=== PATIENT | female | born 1970 | race American Indian/Alaskan Native ===

== ENCOUNTER 2021-02-20 11:37 | Emergency (ER) | payer OTHER ==
--- NOTE | 2021-02-20 12:05 | EDM.PDOC ---
ED HPI GENERAL MEDICAL PROBLEM - General Chief Complaint: Lower Extremity Injury/Pain Stated Complaint: RULE OUT BLOOD CLOTS R LEG Time Seen by Provider: 02/20/21 11:52 - History of Present Illness INITIAL COMMENTS - FREE TEXT/NARRATIVE: History of present illness: [] The patient has severe pain in the right lower extremity that started last night. It is mostly in the ankle. She went to the clinic and they thought she might have a DVT and sent her to me. 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 She also has a bruise of the right foot where her dog leash got wrapped around her right foot. The patient had a past history of arthritis in the right knee for which she had a steroid injection and no problems since. The patient has no systemic signs of infection. No fever chills nausea weakness. Review of systems: As per history of present illness and below otherwise all systems reviewed and negative. Past medical history: As per history of present illness and as reviewed below otherwise noncontributory. Surgical history: As per history of present illness and as reviewed below otherwise noncontributory. Social history: No reported history of drug or alcohol abuse. Family history: As per history of present illness and as reviewed below otherwise noncontributory. Physical exam: Constitutional - well developed, well-nourished and in no acute distress HEENT - normocephalic, no evidence of trauma - external nose and mouth normal - no mass in neck and no JVD - mucosae moist EYES - full EOM, PERRL, no icterus - no evidence of inflammation, injection, or drainage Respiratory - no respiratory distress, equal bilateral expansion, lungs clear to auscultation and no abnormal lung sounds Cardiovascular - Regular Rhythm with S1 and S2 appreciated and no murmur, gallop or rub. GI - abdomen soft without distension or organomegaly - normal bowel sounds - no guard or rebound Musculoskeletal tenderness of the right tib-fib and posterior calf. The right femoral area is not tender or swollen. No gross deformity of long bones or joints - no tenderness, swelling or edema Neurologic - Alert and oriented times four - CN II-XII grossly intact - motor se nsory and coordination symmetrically normal Psychiatric - appropriate mood and affect with normal thought content Hematologic - No petechiae or purpura - mucosa appropriate color and sclera not pale - normal nail bed color and refill Integument -psoriatic appearing rash on the ankles and feet as well as the upper extremities. No evidence of trauma - normal turgor Diagnostics: [] Therapeutics: [] Impression: [] Plan: [] Definitive disposition and diagnosis as appropriate pending reevaluation and review of above. Right leg Pain Score (Numeric/FACES): 10 - Related Data Allergies Allergy/AdvReac Type Severity Reaction Status Date / Time acetaminophen Allergy Rash Verified 02/20/21 11:55 [From Darvocet-N] amoxicillin Allergy Hives Verified 02/20/21 11:55 clavulanic acid Allergy Rash Verified 02/20/21 11:55 [From Augmentin] Latex, Natural Rubber Allergy Rash Verified 02/20/21 11:55 minocycline Allergy Hives Verified 02/20/21 11:55 naproxen sodium [From Aleve] Allergy Rash Verified 02/20/21 11:55 Penicillins Allergy Hives Verified 02/20/21 11:55 propoxyphene napsylate Allergy Rash Verified 02/20/21 11:55 [From Darvocet-N] walnuts,pineapple,banana Allergy Swollen Uncoded 02/20/21 11:55 Tongue Home Meds: Home Meds Cetirizine [ZyrTEC] 0 DAILY 05/10/14 [History] Clobetasol [Clobetasol Propionate 0.05% Cream] PRN 05/10/14 [History] Sertraline [Zoloft] 0 DAILY 05/10/14 [History] Acetaminophen/HYDROcodone [HYDROcodone-Acetaminophen 5-325 MG *] 1 tab PO Q4H PRN #10 each 02/20/21 [Rx] levoFLOXacin [Levaquin] 750 mg PO Q48H #7 tab 02/20/21 [Rx] Past Medical History Cardiovascular History: Reports: Hypertension Endocrine/Metabolic History: Reports: Diabetes, Type II - Infectious Disease History Infectious Disease History: Reports: None Social & Family History - Tobacco Use Tobacco Use Status *Q: Current Every Day Tobacco User Years of Tobacco use: 20 Packs/Tins Daily: 1 - Recreational Drug Use Recreational Drug Use: No Review of Systems - Review of Systems Review Of Systems: Comprehensive ROS is negative, except as noted in HPI. ED EXAM, GENERAL - Physical Exam Exam: See Below Free Text/Narrative:: My physical exam is in the HPI Course - Vital Signs Text/Narrative:: 1322 hrs. right leg is now warm. Appears he is developing cellulitis. Movement of the ankle is okay. I feel the patient has cellulitis. Last Recorded V/S: Last Vital Signs Temp 36.2 C 02/20/21 11:50 Pulse 77 02/20/21 11:50 Resp 18 02/20/21 11:50 BP 125/58 L 02/20/21 11:50 Pulse Ox 97 02/20/21 11:50 - Orders/Labs/Meds Orders: Active Orders 24 hr Category Date Time Status Tibia Fibula Rt [CR] Stat Exams 02/20/21 12:36 Taken Labs: Laboratory Tests 02/20/21 02/20/21 02/20/21 Range/Units 12:29 12:29 12:29 WBC 15.61 H (4.0-11.0) K/uL RBC 4.26 L (4.30-5.90) M/uL Hgb 13.3 (12.0-16.0) g/dL Hct 40.2 (36.0-46.0) % MCV 94.4 (80.0-98.0) fL MCH 31.2 (27.0-32.0) pg MCHC 33.1 (31.0-37.0) g/dL RDW Std Deviation 48.4 (28.0-62.0) fl RDW Coeff of Nargis 14 (11.0-15.0) % Plt Count 173 (150-400) K/uL MPV 10.20 (7.40-12.00) fL Neut % (Auto) 81.5 H (48.0-80.0) % Lymph % (Auto) 13.0 L (16.0-40.0) % Wise % (Auto) 5.0 (0.0-15.0) % Eos % (Auto) 0.4 (0.0-7.0) % Baso % (Auto) 0.1 (0.0-1.5) % Neut # (Auto) 12.7 H (1.4-5.7) K/uL Lymph # (Auto) 2.0 (0.6-2.4) K/uL Wise # (Auto) 0.8 (0.0-0.8) K/uL Eos # (Auto) 0.1 (0.0-0.7) K/uL Baso # (Auto) 0.0 (0.0-0.1) K/uL Nucleated RBC % 0.0 /100WBC Nucleated RBCs # 0 K/uL ESR 12 (0-29) mm/hr Sodium 141 (136-145) mmol/L Potassium 4.1 (3.5-5.1) mmol/L Chloride 103 (98-107) mmol/L Carbon Dioxide 27.4 (21.0-32.0) mmol/L BUN 37 H (7.0-18.0) mg/dL Creatinine 1.4 H (0.6-1.0) mg/dL Est Cr Clr Drug Dosing 39.77 mL/min Estimated GFR (MDRD) 39.8 ml/min Glucose 110 H (74-106) mg/dL Calcium 8.4 L (8.5-10.1) mg/dL Total Bilirubin 0.4 (0.2-1.0) mg/dL AST 18 (15-37) IU/L ALT 30 (14-63) IU/L Alkaline Phosphatase 42 L (46-116) U/L Total Protein 6.3 L (6.4-8.2) g/dL Albumin 3.4 (3.4-5.0) g/dL Globulin 2.9 (2.6-4.0) g/dL Albumin/Globulin Ratio 1.2 (0.9-1.6) Meds: Medications Discontinued Medications Generic Name Dose Route Start Last Admin Trade Name Freq PRN Reason Stop Dose Admin Ketorolac Tromethamine 30 mg 02/20/21 12:36 02/20/21 12:52 Ketorolac 30 Mg/Ml Sdv IM 02/20/21 12:37 30 mg ONETIME ONE Administration Departure - Departure Time of Disposition: 13:28 Disposition: Home, Self-Care 01 Condition: Good Clinical Impression: Cellulitis of right leg, Leg pain - Discharge Information Instructions: Cellulitis, Adult Forms: ED Department Discharge Additional Instructions: Return if worse. Return if fever and chills. Return if moving her ankle causes severe horrible pain that is getting worse. Return if there is discoloration or pallor or blueness in the right leg and foot. Clinic follow-up advised if not markedly better by Tuesday. [facility] [address] [place] [address] [facility] [address] [place] [address] The following information is given to patients seen in the emergency department who are being discharged to home. This information is to outline your options for follow-up care. We provide all patients seen in our emergency department with a follow-up referral. The need for follow-up, as well as the timing and circumstances, are variable depending upon the specifics of your emergency department visit. If you don't have a primary care physician on staff, we will provide you with a referral. We always advise you to contact your personal physician following an emergency department visit to inform them of the circumstance of the visit and for follow-up with them and/or the need for any referrals to a consulting specialist. The emergency department will also refer you to a specialist when appropriate. This referral assures that you have the opportunity for follow-up care with a specialist. All of these measure are taken in an effort to provide you with optimal care, which includes your follow-up. Under all circumstances we always encourage you to contact your private physician who remains a resource for coordinating your care. When calling for follow-up care, please make the office aware that this follow-up is from your recent emergency room visit. If for any reason you are refused follow-up, please contact the [facility] Emergency Department at and asked to speak to the emergency department charge nurse. Sepsis Event Note (ED) - Evaluation Sepsis Screening Result: No Definite Risk - Focused Exam Vital Signs: Vital Signs Temp Pulse Resp BP Pulse Ox 02/20/21 11:50 36.2 C 77 18 125/58 L 97 - My Orders Last 24 Hours: My Active Orders 02/20/21 12:36 Tibia Fibula Rt [CR] Stat - Assessment/Plan Last 24 Hours: My Active Orders 02/20/21 12:36 Tibia Fibula Rt [CR] Stat
[2021-02-20] MEDS ORDERED: Ketorolac 30 MG/ML SDV IM ONE (12:36)
[2021-02-20 13:01] LABS: CARBON DIOXIDE,CO2 27.4 mmol/L (21.0-32.0); POTASSIUM,K 4.1 mmol/L (3.5-5.1)
--- NOTE | 2021-02-20 13:07 | US ---
INDICATION: Leg pain and swelling. TECHNIQUE: Ultrasound venous duplex lower right extremity. Compression venous exam was performed using rodrigues-scale, color Doppler, and spectral Doppler analysis. COMPARISON: None.. FINDINGS: Deep veins: Sonographic imaging demonstrates the right common femoral, deep femoral, superficial femoral, popliteal, posterior tibial and the contralateral right common femoral veins to be fully compressible with normal color Doppler blood flow. Superficial veins: Greater saphenous vein is fully compressible. No popliteal cyst. IMPRESSION: Normal right lower extremity venous ultrasound, no sign of deep venous thrombosis. Dictated by Betito Hanna MD @ 02/20/2021 1:06:49 PM (Electronically Signed)
--- NOTE | 2021-02-20 13:30 | CR ---
INDICATION: Lower extremity pain, no history trauma TECHNIQUE: COMPARISON: None FINDINGS: Bones: Alignment is normal. No fractures. Dorsal and plantar calcaneal spurs. Joint spaces: Unremarkable. Soft tissues: Calf soft tissue edema. IMPRESSION: No acute osseous abnormalities. Dorsal and plantar calcaneal spurs. Calf edema. Dictated by Manuelito Jenkins MD @ 02/20/2021 1:29:37 PM (Electronically Signed)
== END 2021-02-20 13:57 | disposition home or self-care (01) ==
LOC: MW.ED 11:37
DX: L03.115 Cellulitis of right lower limb (principal); I10 Essential (primary) hypertension; E11.9 Type 2 diabetes mellitus without complications; Z72.0 Tobacco use; Z88.6 Allergy status to analgesic agent; Z88.0 Allergy status to penicillin; Z88.1 Allergy status to other antibiotic agents; Z91.040 Latex allergy status; Z88.8 Allergy status to other drugs, medicaments and biological substances; Z91.018 Allergy to other foods; Z79.899 Other long term (current) drug therapy
CPT/HCPCS: 36415; 73590; 80053; 85025; 85652; 93971; 96372; 99284; J1885

== ENCOUNTER 2021-02-20 18:49 | Observation (INO) | payer OTHER ==
--- NOTE | 2021-02-20 22:01 | EDM.PDOC ---
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 She was discharge in the early afternoon today with a diagnosis of cellulitis and prescribed Levaquin and hydrocodone. She underwent a negative venous Doppler study to the right lower extremity today demonstrating no DVT. X-ray of her right tib-fib was negative for fractures but demonstrated calf edema. She took 2 tablets of hydrocodone and returns for worsening pain, currently described as sharp stabbing pain localized to the right anterior tib- fib rated 10/10. She was in so much pain that she felt short of breath. She denies fever, chills. Pain started yesterday afternoon, she states 3 to 4 days ago her dog ran around her leg and the leash wrapped around the front of her right anterior tib-fib creating a bruise. She is pending referral to [facility] for her PPP. ROS: A 10-point review of systems, other than pertinent positives and negatives as stated per HPI, is otherwise negative Past medical history: No additional pertinent history Past Surgical history: No additional pertinent history Social history: No additional pertinent history Family history: No additional pertinent history PHYSICAL EXAM General: AOx4, GCS = 15, obese, moderate distress HEENT: dry mucous membrane Neck: supple, no meningismus, no Kernig or Brudzinski Cardiac: S1S2 RRR Respiratory: CTAB, no crackles or rales, no wheezing Abdomen: Soft, nontender, no rebound or guarding, nondistended, no pulsatile mass. Back: nontender Musculoskeletal: NVI distally, quarter size ecchymosis to the anterior tib-fib with no deformity or surrounding erythema Neuro: No focal deficits, CN 2 - 12 WNL. Skin: brown macular pustules present amidst erythematous, hyperkeratotic plaque on the plantar right foot Right Leg Pain Score (Numeric/FACES): 10 - Related Data Allergies Allergy/AdvReac Type Severity Reaction Status Date / Time acetaminophen Allergy Rash Verified 02/20/21 21:39 [From Darvocet-N] amoxicillin Allergy Hives Verified 02/20/21 21:39 clavulanic acid Allergy Rash Verified 02/20/21 21:39 [From Augmentin] Latex, Natural Rubber Allergy Rash Verified 02/20/21 21:39 minocycline Allergy Hives Verified 02/20/21 21:39 naproxen sodium [From Aleve] Allergy Rash Verified 02/20/21 21:39 Penicillins Allergy Hives Verified 02/20/21 21:39 propoxyphene napsylate Allergy Rash Verified 02/20/21 21:39 [From Darvocet-N] walnuts,pineapple,banana Allergy Swollen Uncoded 02/20/21 21:39 Tongue Home Meds: Home Meds Cetirizine [ZyrTEC] 0 DAILY 05/10/14 [History] Clobetasol [Clobetasol Propionate 0.05% Cream] PRN 05/10/14 [History] Sertraline [Zoloft] 0 DAILY 05/10/14 [History] Acetaminophen/HYDROcodone [HYDROcodone-Acetaminophen 5-325 MG *] 1 tab PO Q4H PRN #10 each 02/20/21 [Rx] levoFLOXacin [Levaquin] 750 mg PO Q48H #7 tab 02/20/21 [Rx] Past Medical History HEENT History: Reports: None Cardiovascular History: Reports: Hypertension Respiratory History: Reports: None Gastrointestinal History: Reports: None Genitourinary History: Reports: None 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 Musculoskeletal History: Reports: None Neurological History: Reports: None Psychiatric History: Reports: None Endocrine/Metabolic History: Reports: Diabetes, Type II Hematologic History: Reports: None Immunologic History: Reports: None Oncologic (Cancer) History: Reports: None Dermatologic History: Reports: None - Infectious Disease History Infectious Disease History: Reports: None - Past Surgical History Head Surgeries/Procedures: Reports: None Musculoskeletal Surgical History: Reports: None Social & Family History - Family History Family Medical History: No Pertinent Family History - Tobacco Use Tobacco Use Status *Q: Current Every Day Tobacco User Years of Tobacco use: 20 Packs/Tins Daily: 0.5 - Caffeine Use Caffeine Use: Reports: Soda - Recreational Drug Use Recreational Drug Use: Yes Recreational Drug Type: Reports: Marijuana/Hashish Review of Systems - Review of Systems Review Of Systems: See Below (see dictation) ED EXAM, GENERAL - Physical Exam Exam: See Below (see dictation) Course - Vital Signs Last Recorded V/S: Last Vital Signs Temp Pulse 69 02/20/21 23:25 Resp 18 02/20/21 21:40 BP 123/62 02/20/21 23:25 Pulse Ox 93 L 02/20/21 23:25 - Orders/Labs/Meds Orders: Active Orders 24 hr Category Date Time Status CORONAVIRUS COVID-19 ARTIE [MOLEC] Stat Lab 02/21/21 00:34 Ordered Clindamycin Phosphate [Cleocin] 300 mg Med 02/21/21 00:34 Ordered Sodium Chloride 0.9% [Normal Saline] 50 ml IV ONETIME Medication Orders Clindamycin Phosphate 300 mg/ (Sodium Chloride) 52 mls @ 100 mls/hr IV ONETIME ONE Stop: 02/21/21 01:05 Labs: Laboratory Tests 02/20/21 02/20/21 Range/Units 22:20 22:20 WBC 14.17 H (4.0-11.0) K/uL RBC 4.24 L (4.30-5.90) M/uL Hgb 13.4 (12.0-16.0) g/dL Hct 40.0 (36.0-46.0) % MCV 94.3 (80.0-98.0) fL MCH 31.6 (27.0-32.0) pg MCHC 33.5 (31.0-37.0) g/dL RDW Std Deviation 48.0 (28.0-62.0) fl RDW Coeff of Nargis 14 (11.0-15.0) % Plt Count 194 (150-400) K/uL MPV 10.40 (7.40-12.00) fL Neut % (Auto) 80.5 H (48.0-80.0) % Lymph % (Auto) 13.7 L (16.0-40.0) % [place] % (Auto) 5.6 (0.0-15.0) % Eos % (Auto) 0.1 (0.0-7.0) % Baso % (Auto) 0.1 (0.0-1.5) % Neut # (Auto) 11.4 H (1.4-5.7) K/uL Lymph # (Auto) 1.9 (0.6-2.4) K/uL [place] # (Auto) 0.8 (0.0-0.8) K/uL Eos # (Auto) 0.0 (0.0-0.7) K/uL Baso # (Auto) 0.0 (0.0-0.1) K/uL Nucleated RBC % 0.0 /100WBC Nucleated RBCs # 0 K/uL Sodium 141 (136-145) mmol/L Potassium 4.9 (3.5-5.1) mmol/L Chloride 105 (98-107) mmol/L Carbon Dioxide 27.1 (21.0-32.0) mmol/L BUN 43 H (7.0-18.0) mg/dL Creatinine 1.5 H (0.6-1.0) mg/dL Est Cr Clr Drug Dosing 37.12 mL/min Estimated GFR (MDRD) 36.8 ml/min Glucose 127 H (74-106) mg/dL Calcium 8.3 L (8.5-10.1) mg/dL Total Bilirubin 0.3 (0.2-1.0) mg/dL AST 20 (15-37) IU/L ALT 34 (14-63) IU/L Alkaline Phosphatase 50 (46-116) U/L Creatine Kinase 253 (26-308) U/L Total Protein 6.5 (6.4-8.2) g/dL Albumin 3.4 (3.4-5.0) g/dL Globulin 3.1 (2.6-4.0) g/dL Albumin/Globulin Ratio 1.1 (0.9-1.6) Meds: Medications Generic Name Dose Route Start Last Admin Trade Name Freq PRN Reason Stop Dose Admin Clindamycin Phosphate 300 mg/ 52 mls @ 100 mls/hr 02/21/21 00:34 Sodium Chloride IV 02/21/21 01:05 ONETIME ONE Discontinued Medications Generic Name Dose Route Start Last Admin Trade Name Daniel PRN Reason Stop Dose Admin Lactated Ringer's 1,000 mls @ 999 mls/hr 02/20/21 22:06 02/20/21 22:20 Ringers, Lactated IV 02/20/21 23:06 999 mls/hr .BOLUS ONE Administration Morphine Sulfate 4 mg 02/20/21 22:06 02/20/21 22:20 Morphine 4 Mg/Ml Syringe IVPUSH 02/20/21 22:07 4 mg ONETIME ONE Administration - Re-Assessments/Exams Free Text/Narrative Re-Assessment/Exam: 02/21/21 00:[address] Cardoso, who agrees to admit patient. The hospitalist's documentation supersedes all other documentation on this patient with regard to any conflicts or discrepancies from this point forward. Any emergency conditions have been treated to the ability of the ED prior to admission. Departure - Departure Time of Disposition: 00:41 Disposition: Home, Self-Care 01 Condition: Good Clinical Impression: Intractable pain, Pustulosis palmaris et plantaris, Cellulitis - Discharge Information *PRESCRIPTION DRUG MONITORING PROGRAM REVIEWED*: Not Applicable *COPY OF PRESCRIPTION DRUG MONITORING REPORT IN PATIENT [place]: Not Applicable Referrals: Ondina Saravia MD [Primary Care Provider] - Forms: ED Department Discharge Sepsis Event Note (ED) - Focused Exam Vital Signs: Vital Signs Pulse Resp BP Pulse Ox 02/20/21 23:25 69 123/62 93 L 02/20/21 21:40 96 18 142/72 H 95 - My Orders Last 24 Hours: My Active Orders 02/21/21 00:34 CORONAVIRUS COVID-19 ARTIE [MOLEC] Stat Clindamycin Phosphate [Cleocin] 300 mg Sodium Chloride 0.9% [Normal Saline] 50 ml IV ONETIME - Assessment/Plan Last 24 Hours: My Active Orders 02/21/21 00:34 CORONAVIRUS COVID-19 ARTIE [MOLEC] Stat Clindamycin Phosphate [Cleocin] 300 mg Sodium Chloride 0.9% [Normal Saline] 50 ml IV ONETIME
[2021-02-20] MEDS ORDERED: Lactated Ringers 1,000 ML IV ONE (22:06)
[2021-02-20] MEDS ORDERED: Morphine 4 MG/ML Syringe IVPUSH ONE (22:06)
[2021-02-20 22:50] LABS: CARBON DIOXIDE,CO2 27.1 mmol/L (21.0-32.0); POTASSIUM,K 4.9 mmol/L (3.5-5.1)
[2021-02-21] MEDS ORDERED: Clindamycin Phosphate in D5W 50 ML IV ONE (00:39)
[2021-02-21] MEDS ORDERED: Clindamycin Phosphate in D5W 300 MG in Premix Bag 1 BAG IV ONE ×2 (00:39)
[2021-02-21] MEDS ORDERED: Albuterol/Ipratropium 3.0-0.5 MG/3 ML Neb Soln NEB PRN (03:25)
[2021-02-21] MEDS ORDERED: Glucagon,Human Recombinant 1 MG Vial IM PRN (03:25)
[2021-02-21] MEDS ORDERED: Morphine 2 MG/ML SYRINGE IVPUSH PRN (03:25)
[2021-02-21] MEDS ORDERED: 50% Dextrose in Water 50 ML Syringe IVPUSH PRN (03:25)
[2021-02-21] MEDS ORDERED: Ondansetron 4 MG/2 ML SDV IVPUSH PRN (03:25)
[2021-02-21] MEDS ORDERED: VANCOmycin 2 GM/400 ML 400 ML IV SCH (04:00)
[2021-02-21] MEDS: Morphine 2 MG/ML SYRINGE IVPUSH PRN ×2 (06:28→11:32)
[2021-02-21] MEDS: Insulin Aspart 100 Units/ML 3 ML Pen SUBCUT SCH ×3 (07:20→18:41)
[2021-02-21] MEDS ORDERED: CLOBETASOL TOP PRN (09:00)
--- NOTE | 2021-02-21 09:11 | PCM.HP.2 ---
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 She was seen in ER yesterday and diagnosis of cellulitis was made and prescribed Levaquin and hydrocodone. She underwent a negative venous Doppler study to the right lower extremity demonstrating no DVT. X-ray of her right tib-fib was negative for fractures but demonstrated calf edema. She took 2 tablets of hydrocodone and returns for worsening pain, currently described as sharp stabbing pain localized to the right anterior tib-fib rated 10/10. She was in so much pain that she felt short of breath. She denies fever, chills. Pain started yesterday afternoon, she states 3 to 4 days ago her dog ran around her leg and the leash wrapped around the front of her right anterior tib-fib creating a bruise. She is pending referral to [facility] for her PPP. Patient's lab work was significant for leukocytosis, patient's right fitzgerald appeared to be warm and tender to touch per ER physician, patient was admitted to the hospital for management of possible cellulitis of right leg. Patient received IV antibiotics. Patient states that her pain is more chronic in nature but recently got worse it seems to start from her knee goes all the way down to her anterior fitzgerald. Patient describes the pain as sharp shooting pain sometimes causes burning sensation. Patient states that she has gotten steroid shots in her knee for knee pain and also is on gabapentin for neuropathic pain. Patient follows up with her certified addiction counselor as well as PCP for her condition. Patient currently takes oral prednisone for palmar plantar pustulosis, in the past she has tried several immunomodulators including Humira which have not worked for her. Patient was quite tearful during my encounter states that pain is affecting her quality of life and she is unable to do her activities of daily living normally. Right Leg Pain Score (Numeric/FACES): 9 - Related Data Allergies/Adverse Reactions: Allergies Allergy/AdvReac Type Severity Reaction Status Date / Time amoxicillin Allergy Hives Verified 02/21/21 02:46 clavulanic acid Allergy Rash Verified 02/21/21 02:46 [From Augmentin] Latex, Natural Rubber Allergy Rash Verified 02/21/21 02:46 minocycline Allergy Hives Verified 02/21/21 02:46 naproxen sodium [From Aleve] Allergy Rash Verified 02/21/21 02:46 Penicillins Allergy Hives Verified 02/21/21 02:46 propoxyphene napsylate Allergy Rash Verified 02/21/21 02:46 [From Darvocet-N] walnuts,pineapple,banana Allergy Swollen Uncoded 02/21/21 02:46 Tongue Home Medications: Home Meds Cetirizine [ZyrTEC] 1 tab DAILY 05/10/14 [History] Clobetasol [Clobetasol Propionate 0.05% Cream] 1 dose TOP BID PRN 05/10/14 [History] Sertraline [Zoloft] DAILY 05/10/14 [History] Acetaminophen/HYDROcodone [HYDROcodone-Acetaminophen 5-325 MG *] 1 tab PO Q4H PRN #10 each 02/20/21 [Rx] levoFLOXacin [Levaquin] 750 mg PO Q48H #7 tab 02/20/21 [Rx] Gabapentin [Neurontin] 300 mg PO TID PRN 02/21/21 [History] predniSONE [Prednisone] 30 mg PO DAILY 02/21/21 [History] Past Medical History HEENT History: Reports: Sinusitis Cardiovascular History: Reports: Hypertension Respiratory History: Reports: None Gastrointestinal History: Reports: None Genitourinary History: Reports: None [employer]ENS[employer]ACH History: Reports: Musculoskeletal History: Reports: Arthritis Other Musculoskeletal History: Arthritis in right knee Neurological History: Reports: None Psychiatric History: Reports: Anxiety Endocrine/Metabolic History: Reports: Diabetes, Type II Hematologic History: Reports: None Immunologic History: Reports: None Oncologic (Cancer) History: Reports: None Dermatologic History: Reports: Other (See Below) Other Dermatologic History: Palmoplantar Pustulosis, bullous pemphigoid - Infectious Disease History Infectious Disease History: Reports: Chicken Pox - Past Surgical History Head Surgeries/Procedures: Reports: None HEENT Surgical History: Reports: Tonsillectomy GI Surgical History: Reports: Cholecystectomy Female Surgical History: Reports: Section, Hysterectomy Musculoskeletal Surgical History: Reports: None Social & Family History - Family History Family Medical History: No Pertinent Family History - Tobacco Use Tobacco Use Status *Q: Current Every Day Tobacco User Years of Tobacco use: 20 Packs/Tins Daily: 0.5 - Caffeine Use Caffeine Use: Reports: Soda - Recreational Drug Use Recreational Drug Use: Yes Recreational Drug Type: Reports: Marijuana/Hashish Recreational Drug Use Frequency: Rarely H&P Review of Systems - Review of Systems: Review Of Systems: See Below General: Denies: Fever, Chills, Malaise, Weakness, Fatigue Pulmonary: Denies: Shortness of Breath, Wheezing, Pleuritic Chest Pain Cardiovascular: Denies: Chest Pain, Palpitations, Dyspnea on Exertion Gastrointestinal: Denies: Abdominal Pain, Anorexia, Black Stool, Bloody Stool, Constipation Genitourinary: Denies: Dysuria, Frequency, Burning, Pain Musculoskeletal: Denies: Neck Pain, Shoulder Pain, Arm Pain, Back Pain, Other Skin: Reports: Rash, Erythema, Lesions. Denies: Cyanosis, Jaundice, Change in Color Psychiatric: Denies: Confusion, Depression, Mood Lability Neurological: Denies: Confusion, Dizziness, Headache, Numbness Hematologic/Lymphatic: Denies: Anemia, Easy Bleeding, Easy Bruising Exam - Exam Exam: See Below - Vital Signs Vital Signs: Last Vital Signs Temp 35.9 C L 02/21/21 05:09 Pulse 63 02/21/21 05:09 Resp 16 02/21/21 05:09 BP 127/67 02/21/21 05:09 Pulse Ox 95 02/21/21 05:09 Weight: 147.735 kg - Exam General: Alert, Oriented Neck: Supple, Trachea Midline Lungs: Clear to Auscultation, Normal Respiratory Effort Cardiovascular: Regular Rate, Regular Rhythm GI/Abdominal Exam: Normal Bowel Sounds, Soft, Non-Tender Extremities: Leg Pain, Redness, Other (Red erythematous rash in the plantar aspect of her right foot which is chronic in nature) - Patient Data Lab Results Last 24 hrs: Laboratory Results - last 24 hr 02/20/21 02/20/21 02/21/21 Range/Units 22:20 22:20 00:40 WBC 14.17 H (4.0-11.0) K/uL RBC 4.24 L (4.30-5.90) M/uL Hgb 13.4 (12.0-16.0) g/dL Hct 40.0 (36.0-46.0) % MCV 94.3 (80.0-98.0) fL MCH 31.6 (27.0-32.0) pg MCHC 33.5 (31.0-37.0) g/dL RDW Std Deviation 48.0 (28.0-62.0) fl RDW Coeff of Nargis 14 (11.0-15.0) % Plt Count 194 (150-400) K/uL MPV 10.40 (7.40-12.00) fL Neut % (Auto) 80.5 H (48.0-80.0) % Lymph % (Auto) 13.7 L (16.0-40.0) % Campbell % (Auto) 5.6 (0.0-15.0) % Eos % (Auto) 0.1 (0.0-7.0) % Baso % (Auto) 0.1 (0.0-1.5) % Neut # (Auto) 11.4 H (1.4-5.7) K/uL Lymph # (Auto) 1.9 (0.6-2.4) K/uL Campbell # (Auto) 0.8 (0.0-0.8) K/uL Eos # (Auto) 0.0 (0.0-0.7) K/uL Baso # (Auto) 0.0 (0.0-0.1) K/uL Nucleated RBC % 0.0 /100WBC Nucleated RBCs # 0 K/uL Sodium 141 (136-145) mmol/L Potassium 4.9 (3.5-5.1) mmol/L Chloride 105 (98-107) mmol/L Carbon Dioxide 27.1 (21.0-32.0) mmol/L BUN 43 H (7.0-18.0) mg/dL Creatinine 1.5 H (0.6-1.0) mg/dL Est Cr Clr Drug Dosing 37.12 mL/min Estimated GFR (MDRD) 36.8 ml/min Glucose 127 H (74-106) mg/dL POC Glucose (70-99) mg/dL Calcium 8.3 L (8.5-10.1) mg/dL Total Bilirubin 0.3 (0.2-1.0) mg/dL AST 20 (15-37) IU/L ALT 34 (14-63) IU/L Alkaline Phosphatase 50 (46-116) U/L Creatine Kinase 253 (26-308) U/L Total Protein 6.5 (6.4-8.2) g/dL Albumin 3.4 (3.4-5.0) g/dL Globulin 3.1 (2.6-4.0) g/dL Albumin/Globulin Ratio 1.1 (0.9-1.6) SARS-CoV-2 RNA (ARTIE) NEGATIVE (NEGATIVE) 02/21/21 02/21/21 Range/Units 03:52 06:32 WBC (4.0-11.0) K/uL RBC (4.30-5.90) M/uL Hgb (12.0-16.0) g/dL Hct (36.0-46.0) % MCV (80.0-98.0) fL MCH (27.0-32.0) pg MCHC (31.0-37.0) g/dL RDW Std Deviation (28.0-62.0) fl RDW Coeff of Nargis (11.0-15.0) % Plt Count (150-400) K/uL MPV (7.40-12.00) fL Neut % (Auto) (48.0-80.0) % Lymph % (Auto) (16.0-40.0) % Campbell % (Auto) (0.0-15.0) % Eos % (Auto) (0.0-7.0) % Baso % (Auto) (0.0-1.5) % Neut # (Auto) (1.4-5.7) K/uL Lymph # (Auto) (0.6-2.4) K/uL Campbell # (Auto) (0.0-0.8) K/uL Eos # (Auto) (0.0-0.7) K/uL Baso # (Auto) (0.0-0.1) K/uL Nucleated RBC % /100WBC Nucleated RBCs # K/uL Sodium (136-145) mmol/L Potassium (3.5-5.1) mmol/L Chloride (98-107) mmol/L Carbon Dioxide (21.0-32.0) mmol/L BUN (7.0-18.0) mg/dL Creatinine (0.6-1.0) mg/dL Est Cr Clr Drug Dosing mL/min Estimated GFR (MDRD) ml/min Glucose (74-106) mg/dL POC Glucose 86 102 H (70-99) mg/dL Calcium (8.5-10.1) mg/dL Total Bilirubin (0.2-1.0) mg/dL AST (15-37) IU/L ALT (14-63) IU/L Alkaline Phosphatase (46-116) U/L Creatine Kinase (26-308) U/L Total Protein (6.4-8.2) g/dL Albumin (3.4-5.0) g/dL Globulin (2.6-4.0) g/dL Albumin/Globulin Ratio (0.9-1.6) SARS-CoV-2 RNA (ARTIE) (NEGATIVE) Result Diagrams: 02/20/21 22:20 02/20/21 22:20 Sepsis Event Note - Evaluation Sepsis Screening Result: No Definite Risk - Focused Exam Vital Signs: Vital Signs Temp Pulse Resp BP Pulse Ox 02/21/21 05:09 35.9 C L 63 16 127/67 95 02/21/21 02:05 36.4 C 62 16 129/64 97 02/21/21 01:12 62 107/49 L 95 02/21/21 00:42 36.5 C 02/20/21 23:25 69 123/62 93 L 02/20/21 21:40 96 18 142/72 H 95 - Problem List (1) Diabetes mellitus SNOMED Code(s): 71445657 ICD Code: E11.9 - TYPE 2 DIABETES MELLITUS WITHOUT COMPLICATIONS Status: Acute Current Visit: Yes (2) Cellulitis SNOMED Code(s): 715719792 ICD Code: L03.90 - CELLULITIS, UNSPECIFIED Status: Acute Current Visit: Yes (3) Intractable pain SNOMED Code(s): 60032947 ICD Code: R52 - PAIN, UNSPECIFIED Status: Acute Current Visit: Yes (4) Pustulosis palmaris et plantaris SNOMED Code(s): 39752079 ICD Code: L40.3 - PUSTULOSIS PALMARIS ET PLANTARIS Status: Acute Current Visit: Yes (5) Cellulitis of right leg SNOMED Code(s): 083001700 ICD Code: L03.115 - CELLULITIS OF RIGHT LOWER LIMB Status: Acute Current Visit: No (6) Leg pain SNOMED Code(s): 69543009 ICD Code: M79.606 - PAIN IN LEG, UNSPECIFIED Status: Acute Current Visit: No Problem List Initiated/Reviewed/Updated: Yes Orders Last 24hrs: Active Orders 24 hr Category Date Time Status Patient Status [ADT] Routine ADT 02/21/21 00:47 Active Accu Check [Blood Glucose Check, Bedside] [RC] TIDAC Care 02/21/21 03:24 Active Blood Glucose Check, Bedside [RC] TIDMEALS Care 02/21/21 03:25 Active Communication Order [RC] ROUTINE Care 02/21/21 03:24 Active RT Aerosol Therapy [RC] ASDIRECTED Care 02/21/21 03:26 Active Up ad Bridget [RC] ASDIRECTED Care 02/21/21 03:24 Active Vital Signs [RC] Q4H Care 02/21/21 03:24 Active [employer] Diet [DIET] Diet 02/21/21 Breakfast Active VANCOMYCIN TROUGH [CHEM] Timed Lab 02/23/21 03:30 Ordered Albuterol/Ipratropium [DuoNeb 3.0-0.5 MG/3 ML] Med 02/21/21 03:25 Active 3 ml NEB Q4HRRT PRN Dextrose 50% in Water Med 02/21/21 03:25 Active 50 ml IVPUSH ASDIRECTED PRN Enoxaparin [Lovenox] Med 02/21/21 09:00 Active 40 mg SUBCUT Q24H Glucagon,Human Recombinant [GlucaGen] Med 02/21/21 03:25 Active 1 mg IM ASDIRECTED PRN Insulin Aspart [NovoLOG] Med 02/21/21 07:30 Active See Protocol SUBCUT TIDAC Morphine Med 02/21/21 05:31 Active 2 mg IVPUSH Q4H PRN Ondansetron [Zofran] Med 02/21/21 03:25 Active 4 mg IVPUSH Q4H PRN Pantoprazole [ProTONIX IV] 40 mg Med 02/21/21 09:00 Active Sodium Chloride 0.9% [Normal Saline] 10 ml IV DAILY Pharmacy to Dose - Vancomycin Med 02/21/21 09:00 Active 1 dose .XX ASDIRECTED VANCOmycin 2 GM/400 ML 400 ml Med 02/21/21 04:00 Active IV Q24H Medication Orders Albuterol/Ipratropium (Albuterol/Ipratropium 3.0-0.5 Mg/3 Ml Neb Soln) 3 ml NEB Q4HRRT PRN PRN Reason: Shortness of Breath Dextrose/Water (50% Dextrose In Water 50 Ml Syringe) 50 ml IVPUSH ASDIRECTED CA N PRN Reason: Hypoglycemia Enoxaparin Sodium (Enoxaparin 40 Mg/0.4 Ml Syringe) 40 mg SUBCUT Q24H KATELYNN Glucagon (Glucagon,Human Recombinant 1 Mg Vial) 1 mg IM ASDIRECTED PRN PRN Reason: Hypoglycemia Pantoprazole Sodium 40 mg/ (Sodium Chloride) 10 mls @ 300 mls/hr IV DAILY KATELYNN Vancomycin HCl (Vancomycin 2 Gm/400 Ml) 400 mls @ 200 mls/hr IV Q24H KATELYNN Last Admin: 02/21/21 05:05 Dose: 200 mls/hr Documented by: AGUSTO Insulin Aspart (Insulin Aspart 100 Units/Ml 3 Ml Pen) 0 unit SUBCUT TIDAC [facility]; Protocol Last Admin: 02/21/21 07:20 Dose: Not Given Documented by: THALIA Morphine Sulfate (Morphine 2 Mg/Ml Syringe) 2 mg IVPUSH Q4H PRN PRN Reason: Pain Last Admin: 02/21/21 06:28 Dose: 2 mg Documented by: AGUSTO Ondansetron HCl (Ondansetron 4 Mg/2 Ml Sdv) 4 mg IVPUSH Q4H PRN PRN Reason: Nausea Vancomycin HCl (Pharmacy To Dose - Vancomycin) 1 dose .XX ASDIRECTED [facility] Assessment/Plan Comment:: Patient is a 51-year-old female admitted for intractable right leg pain, patient has history of PPP which is skin condition causing chronic rash in the plantar and palmar aspects of hands and feet. Patient does have white count but also take steroids, upon reviewing patient's previous images of the rash the rash actually appears much better, there is no r edness or swelling around her fitzgerald I doubt patient has cellulitis at this point The pain seems to be chronic in nature and seems to be acutely exacerbated, We will provide some pain relief with IV Toradol for now, patient states that morphine is not helping We will continue patient's oral steroids Patient takes gabapentin 300 3 times daily, will increase the dose to 600 3 times daily and see if that helps alleviate patient's pain I informed patient that this condition requires further outpatient management and she will need to see her PCP and rheumatology for further options I will obtain a CT scan of the right lower extremity including knee to rule out any other acute pathology Possible DC tomorrow if able to obtain pain control
[2021-02-21] MEDS: Pantoprazole 40 MG in Sodium Chloride 0.9% 10 ML IV SCH (09:37)
[2021-02-21] MEDS: Enoxaparin 40 MG/0.4 ML Syringe SUBCUT SCH (09:37)
[2021-02-21] MEDS: Ketorolac 30 MG/ML SDV IVPUSH PRN ×2 (15:00→20:51)
--- NOTE | 2021-02-21 19:32 | CT ---
HISTORY: Right lower leg pain. FINDINGS: The lower leg was studied in the axial plane. Sagittal and coronal 2 dimensional reconstructions were then performed. There is mild to moderate patchy increased density in the subcutaneous fat of the lower leg especially anteriorly. This could represent edema possibly from cellulitis. No mass lesion or fluid collection is seen. Mild atrophy and fatty replacement of the calf musculature is noted. No focal bony destruction or fracture is noted. Moderate osteoarthritic changes of the knee joint are noted. Dystrophic calcifications are seen in the distal Achilles tendon. IMPRESSION: Likely mild edema in the subcutaneous fat of the lower leg of unknown cause. Please correlate with possibility for cellulitis. Please note that all CT scans at this facility use dose modulation, iterative reconstruction, and/or weight-based dosing when appropriate to reduce radiation dose to as low as reasonably achievable. Dictated by Lucas John MD @ 02/22/2021 6:54:43 AM (Electronically Signed)
[2021-02-21] MEDS: Gabapentin 300 MG Cap PO SCH ×3 (20:49→22:11)
[2021-02-21] MEDS ORDERED: Gabapentin 300 MG Cap PO SCH (22:00)
[2021-02-22] MEDS ORDERED: HYDROmorphone 1 MG/ML Syringe IVPUSH ONE (00:33)
[2021-02-22] MEDS: Sertraline 100 MG Tab PO SCH ×2 (01:22→09:28)
[2021-02-22] MEDS: Hydroxychloroquine 200 MG Tab PO SCH ×2 (01:23→10:33)
[2021-02-22] MEDS ORDERED: Vancomycin 2 GM in Sodium Chloride 0.9% 500 ML IV SCH (04:00)
[2021-02-22] MEDS: Gabapentin 300 MG Cap PO SCH (06:42)
[2021-02-22] MEDS: Insulin Aspart 100 Units/ML 3 ML Pen SUBCUT SCH ×2 (07:03→11:32)
[2021-02-22 07:08] LABS: CARBON DIOXIDE,CO2 24.9 mmol/L (21.0-32.0); POTASSIUM,K 4.3 mmol/L (3.5-5.1)
[2021-02-22] MEDS ORDERED: Cetirizine 10 MG Tab PO SCH (09:00)
[2021-02-22] MEDS ORDERED: predniSONE 10 MG Tab PO SCH (09:00)
[2021-02-22] MEDS ORDERED: Lisinopril/Hydrochlorothiazide 10-12.5 MG Tab PO SCH (09:15)
[2021-02-22] MEDS ORDERED: Hydrochlorothiazide 12.5 MG Cap PO SCH (09:15)
[2021-02-22] MEDS ORDERED: Lisinopril 10 MG Tab PO SCH (09:15)
[2021-02-22] MEDS: Pantoprazole 40 MG in Sodium Chloride 0.9% 10 ML IV SCH (09:25)
[2021-02-22] MEDS: Enoxaparin 40 MG/0.4 ML Syringe SUBCUT SCH (09:25)
[2021-02-22] MEDS: Ketorolac 30 MG/ML SDV IVPUSH PRN (11:19)
--- NOTE | 2021-02-22 12:13 | PCM.DCSUM1 ---
Discharge Summary - Discharge Data Discharge Disposition: Home, Self-Care 01 Condition: Stable - Referral to Home Health Primary Care Physician: Ondina Saravia MD - Discharge Diagnosis/Problem(s) (1) Diabetes mellitus SNOMED Code(s): 81940348 ICD Code: E11.9 - TYPE 2 DIABETES MELLITUS WITHOUT COMPLICATIONS Status: Acute Current Visit: Yes (2) Cellulitis SNOMED Code(s): 080505113 ICD Code: L03.90 - CELLULITIS, UNSPECIFIED Status: Acute Current Visit: Yes (3) Intractable pain SNOMED Code(s): 80862326 ICD Code: R52 - PAIN, UNSPECIFIED Status: Acute Current Visit: Yes (4) Pustulosis palmaris et plantaris SNOMED Code(s): 94707041 ICD Code: L40.3 - PUSTULOSIS PALMARIS ET PLANTARIS Status: Acute Current Visit: Yes (5) Cellulitis of right leg SNOMED Code(s): 774421219 ICD Code: L03.115 - CELLULITIS OF RIGHT LOWER LIMB Status: Acute Current Visit: No (6) Leg pain SNOMED Code(s): 52619719 ICD Code: M79.606 - PAIN IN LEG, UNSPECIFIED Status: Acute Current Visit: No (7) Neuropathy SNOMED Code(s): 791843429 ICD Code: G62.9 - POLYNEUROPATHY, UNSPECIFIED Status: Acute Current Visit: Yes - Patient Instructions Diet: Diabetic Diet Activity: As Tolerated Driving: May Drive Today Showering/Bathing: May Shower Notify Provider of: Fever, Increased Pain, Swelling and Redness, Drainage, Nausea and/or Vomiting - Discharge Plan *PRESCRIPTION DRUG MONITORING PROGRAM REVIEWED*: Not Applicable *COPY OF PRESCRIPTION DRUG MONITORING REPORT IN PATIENT [place]: Not Applicable Prescriptions/Med Rec: Gabapentin [Neurontin] 600 mg PO TID #60 cap Omeprazole 20 mg PO ACBREAKFAST #30 capsule. Ketorolac [Toradol] 20 mg PO Q12H PRN #30 tab PRN Reason: Pain Home Medications: Home Meds Cetirizine [ZyrTEC] 1 tab DAILY 05/10/14 [History] Clobetasol [Clobetasol Propionate 0.05% Cream] 1 dose TOP BID PRN 05/10/14 [History] Acetaminophen/HYDROcodone [HYDROcodone-Acetaminophen 5-325 MG *] 1 tab PO Q4H PRN #10 each 02/20/21 [Rx] Hydroxychloroquine [Plaquenil] 200 mg PO BID 02/21/21 [History] Lisinopril/Hydrochlorothiazide [Lisinopril-Hctz 20-12.5 mg Tab] 1 each PO BID 02/21/21 [History] Sertraline [Zoloft] 100 mg PO DAILY 02/21/21 [History] metFORMIN [Glucophage XR] 500 mg PO BID 02/21/21 [History] predniSONE [Prednisone] 30 mg PO DAILY 02/21/21 [History] Gabapentin [Neurontin] 600 mg PO TID #60 cap 02/22/21 [Rx] Ketorolac [Toradol] 20 mg PO Q12H PRN #30 tab 02/22/21 [Rx] Omeprazole 20 mg PO ACBREAKFAST #30 capsule.dr 02/22/21 [Rx] levoFLOXacin [Levaquin] 750 mg PO DAILY #5 tab 02/22/21 [Rx] Forms: ED Department Discharge Referrals: Ondina Saravia MD [Primary Care Provider] - - Patient Data Vitals - Most Recent: Last Vital Signs Temp 36.2 C 02/22/21 08:00 Pulse 68 02/22/21 08:00 Resp 17 02/22/21 08:00 BP 141/67 H 02/22/21 09:27 Pulse Ox 96 02/22/21 08:00 Weight - Most Recent: 147.735 kg I&O - Last 24 hours: Intake & Output 02/21/21 02/22/21 02/22/21 22:59 06:59 14:59 Intake Total 1270 670 Balance 1270 670 Lab Results - Last 24 hrs: Laboratory Results - last 24 hr 02/21/21 02/21/21 02/22/21 Range/Units 17:15 21:49 06:10 WBC 9.25 (4.0-11.0) K/uL RBC 4.12 L (4.30-5.90) M/uL Hgb 12.6 (12.0-16.0) g/dL Hct 38.7 (36.0-46.0) % MCV 93.9 (80.0-98.0) fL MCH 30.6 (27.0-32.0) pg MCHC 32.6 (31.0-37.0) g/dL RDW Std Deviation 48.8 (28.0-62.0) fl RDW Coeff of Nargis 14 (11.0-15.0) % Plt Count 148 L (150-400) K/uL MPV 10.30 (7.40-12.00) fL Neut % (Auto) 69.5 (48.0-80.0) % Lymph % (Auto) 23.5 (16.0-40.0) % [place] % (Auto) 6.3 (0.0-15.0) % Eos % (Auto) 0.5 (0.0-7.0) % Baso % (Auto) 0.2 (0.0-1.5) % Neut # (Auto) 6.4 H (1.4-5.7) K/uL Lymph # (Auto) 2.2 (0.6-2.4) K/uL [place] # (Auto) 0.6 (0.0-0.8) K/uL Eos # (Auto) 0.1 (0.0-0.7) K/uL Baso # (Auto) 0.0 (0.0-0.1) K/uL Nucleated RBC % 0.0 /100WBC Nucleated RBCs # 0 K/uL Sodium (136-145) mmol/L Potassium (3.5-5.1) mmol/L Chloride (98-107) mmol/L Carbon Dioxide (21.0-32.0) mmol/L BUN (7.0-18.0) mg/dL Creatinine (0.6-1.0) mg/dL Est Cr Clr Drug Dosing mL/min Estimated GFR (MDRD) ml/min Glucose (74-106) mg/dL POC Glucose 100 H 116 H (70-99) mg/dL Calcium (8.5-10.1) mg/dL Phosphorus (2.6-4.7) mg/dL Magnesium (1.8-2.4) mg/dL 02/22/21 02/22/21 02/22/21 Range/Units 06:10 06:49 11:29 WBC (4.0-11.0) K/uL RBC (4.30-5.90) M/uL Hgb (12.0-16.0) g/dL Hct (36.0-46.0) % MCV (80.0-98.0) fL MCH (27.0-32.0) pg MCHC (31.0-37.0) g/dL RDW Std Deviation (28.0-62.0) fl RDW Coeff of Nargis (11.0-15.0) % Plt Count (150-400) K/uL MPV (7.40-12.00) fL Neut % (Auto) (48.0-80.0) % Lymph % (Auto) (16.0-40.0) % [place] % (Auto) (0.0-15.0) % Eos % (Auto) (0.0-7.0) % Baso % (Auto) (0.0-1.5) % Neut # (Auto) (1.4-5.7) K/uL Lymph # (Auto) (0.6-2.4) K/uL [place] # (Auto) (0.0-0.8) K/uL Eos # (Auto) (0.0-0.7) K/uL Baso # (Auto) (0.0-0.1) K/uL Nucleated RBC % /100WBC Nucleated RBCs # K/uL Sodium 137 (136-145) mmol/L Potassium 4.3 (3.5-5.1) mmol/L Chloride 103 (98-107) mmol/L Carbon Dioxide 24.9 (21.0-32.0) mmol/L BUN 29 H (7.0-18.0) mg/dL Creatinine 1.0 (0.6-1.0) mg/dL Est Cr Clr Drug Dosing 55.68 mL/min Estimated GFR (MDRD) 58.7 ml/min Glucose 112 H (74-106) mg/dL POC Glucose 131 H 100 H (70-99) mg/dL Calcium 7.7 L (8.5-10.1) mg/dL Phosphorus 3.8 (2.6-4.7) mg/dL Magnesium 2.2 (1.8-2.4) mg/dL Med Orders - Current: Current Medications Albuterol/Ipratropium (Albuterol/Ipratropium 3.0-0.5 Mg/3 Ml Neb Soln) 3 ml NEB Q4HRRT PRN PRN Reason: Shortness of Breath Cetirizine HCl (Cetirizine 10 Mg Tab) 5 mg PO DAILY [facility] Last Admin: 02/22/21 09:27 Dose: 5 mg Documented by: Dextrose/Water (50% Dextrose In Water 50 Ml Syringe) 50 ml IVPUSH ASDIRECTED PRN PRN Reason: Hypoglycemia Enoxaparin Sodium (Enoxaparin 40 Mg/0.4 Ml Syringe) 40 mg SUBCUT Q24H [facility] Last Admin: 02/22/21 09:25 Dose: 40 mg Documented by: Gabapentin (Gabapentin 300 Mg Cap) 600 mg PO TID [facility] Last Admin: 02/22/21 06:42 Dose: 600 mg Documented by: Glucagon (Glucagon,Human Recombinant 1 Mg Vial) 1 mg IM ASDIRECTED PRN PRN Reason: Hypoglycemia Hydrochlorothiazide (Hydrochlorothiazide 12.5 Mg Cap) 12.5 mg PO DAILY [facility] Last Admin: 02/22/21 09:28 Dose: 12.5 mg Documented by: Hydroxychloroquine Sulfate (Hydroxychloroquine 200 Mg Tab) 200 mg PO BID [facility] Last Admin: 02/22/21 10:33 Dose: 200 mg Documented by: Pantoprazole Sodium 40 mg/ (Sodium Chloride) 10 mls @ 300 mls/hr IV DAILY [facility] Last Admin: 02/22/21 09:25 Dose: 300 mls/hr Documented by: Vancomycin HCl 2 gm/ Sodium (Chloride) 500 mls @ 250 mls/hr IV Q24H [facility] Last Admin: 02/22/21 04:29 Dose: 250 mls/hr Documented by: Insulin Aspart (Insulin Aspart 100 Units/Ml 3 Ml Pen) 0 unit SUBCUT TIDAC [facility]; Protocol Last Admin: 02/22/21 11:32 Dose: Not Given Documented by: Ketorolac Tromethamine (Ketorolac 30 Mg/Ml Sdv) 30 mg IVPUSH Q6H PRN PRN Reason: Pain (severe 7-10) Stop: 02/26/21 14:43 Last Admin: 02/22/21 11:19 Dose: 30 mg Documented by: Lisinopril (Lisinopril 10 Mg Tab) 20 mg PO DAILY [facility] Last Admin: 02/22/21 09:27 Dose: 20 mg Documented by: Ondansetron HCl (Ondansetron 4 Mg/2 Ml Sdv) 4 mg IVPUSH Q4H PRN PRN Reason: Nausea Last Admin: 02/22/21 02:22 Dose: 4 mg Documented by: Clobetasol [ Clobetasol Propionate 0.05% Cream] 1 each TOP BID PRN PRN Reason: Itching Prednisone (Prednisone 10 Mg Tab) 30 mg PO DAILY [facility] Last Admin: 02/22/21 09:28 Dose: 30 mg Documented by: Sertraline HCl (Sertraline 100 Mg Tab) 100 mg PO DAILY [facility] Last Admin: 02/22/21 09:28 Dose: 100 mg Documented by: Vancomycin HCl (Pharmacy To Dose - Vancomycin) 1 dose .XX ASDIRECTED [facility] Discontinued Medications Gabapentin (Gabapentin 300 Mg Cap) 600 mg PO TID [facility] Hydromorphone HCl (Hydromorphone 1 Mg/Ml Syringe) 1 mg IVPUSH ONETIME ONE Stop: 02/22/21 00:34 Last Admin: 02/22/21 02:39 Dose: 1 mg Documented by: Lactated Ringer's (Ringers, Lactated) 1,000 mls @ 999 mls/hr IV .BOLUS ONE Stop: 02/20/21 23:06 Last Admin: 02/20/21 22:20 Dose: 999 mls/hr Documented by: Clindamycin Phosphate 300 mg/ (Sodium Chloride) 52 mls @ 100 mls/hr IV ONETIME ONE Stop: 02/21/21 01:05 Last Admin: 02/21/21 00:43 Dose: Not Given Documented by: Clindamycin Phosphate 300 mg/ (Premix) 50 mls @ 150 mls/hr IV ONETIME ONE Stop: 02/21/21 00:58 Last Admin: 02/21/21 00:48 Dose: 150 mls/hr Documented by: Clindamycin Phosphate (Cleocin In D5w 300 Mg/50 Ml) Confirm Administered Dose 50 mls @ as directed IV .STK-MED ONE Stop: 02/21/21 00:40 Last Admin: 02/21/21 00:48 Dose: Not Given Documented by: Vancomycin HCl (Vancomycin 2 Gm/400 Ml) 400 mls @ 200 mls/hr IV Q24H [facility] Last Admin: 02/21/21 05:05 Dose: 200 mls/hr Documented by: Morphine Sulfate (Morphine 4 Mg/Ml Syringe) 4 mg IVPUSH ONETIME ONE Stop: 02/20/21 22:07 Last Admin: 02/20/21 22:20 Dose: 4 mg Documented by: Morphine Sulfate (Morphine 2 Mg/Ml Syringe) 1 mg IVPUSH Q3H PRN PRN Reason: Pain Last Admin: 02/21/21 03:55 Dose: 1 mg Documented by: Morphine Sulfate (Morphine 2 Mg/Ml Syringe) 2 mg IVPUSH Q4H PRN PRN Reason: Pain Last Admin: 02/21/21 11:32 Dose: 2 mg Documented by:
== END 2021-02-22 13:12 | disposition home or self-care (01) ==
LOC: MW.ED 18:49 → MW.MS 02-21 00:47
PROVIDERS: ADMIT Student in an Organized Health Care Education/Training Program; ATTEND Student in an Organized Health Care Education/Training Program
DX: L03.115 Cellulitis of right lower limb (principal); E11.40 Type 2 diabetes mellitus with diabetic neuropathy, unspecified; I10 Essential (primary) hypertension; F17.210 Nicotine dependence, cigarettes, uncomplicated; L40.3 Pustulosis palmaris et plantaris; Z20.822 Contact with and (suspected) exposure to COVID-19; Z88.1 Allergy status to other antibiotic agents; Z88.0 Allergy status to penicillin; Z88.8 Allergy status to other drugs, medicaments and biological substances; Z91.040 Latex allergy status; Z91.018 Allergy to other foods; Z79.899 Other long term (current) drug therapy; Z98.890 Other specified postprocedural states
CPT/HCPCS: 36415; 73700; 80048; 80053; 82550; 82947; 83735; 84100; 85025; 87635; 96374; 96375; 99284; A9270; C9113; J1170; J1650; J1885; J2270; J2405; J3370; J3490; J7040; J7120; U0002

== ENCOUNTER 2021-06-05 00:59 | Inpatient (IN) | payer OTHER ==
[2021-06-05] MEDS: Dexamethasone 10 MG/ML SDV IVPUSH SCH ×2 (03:45→11:06)
[2021-06-05 04:55] LABS: BLOOD UREA NITROGEN,BUN 34 mg/dL (7.0-18.0); CARBON DIOXIDE,CO2 19.4 mmol/L (21.0-32.0); CHLORIDE,CL 102 mmol/L (98-107); GLUCOSE RANDOM 127 mg/dL (74-106); SODIUM,NA 135 mmol/L (136-145)
[2021-06-05] MEDS ORDERED: Iopamidol 755 MG/ML 500 ML Multipack Bottle IVPUSH STA (05:55)
[2021-06-05] MEDS ORDERED: REMDESIVIR 200 MG in Sodium Chloride 0.9% 250 ML IV ONE ×2 (06:21→08:00)
[2021-06-05 07:35] LABS: CARBON DIOXIDE,CO2 18.3 mmol/L (21.0-32.0); POTASSIUM,K 4.3 mmol/L (3.5-5.1)
[2021-06-05] MEDS ORDERED: Docusate Sodium 100 MG Cap PO PRN (08:04)
[2021-06-05] MEDS ORDERED: Albuterol/Ipratropium 3.0-0.5 MG/3 ML Neb Soln NEB PRN (08:04)
[2021-06-05] MEDS ORDERED: Ondansetron 4 MG/2 ML SDV IVPUSH PRN (08:04)
[2021-06-05] MEDS ORDERED: Ondansetron 4 MG Tab.DIS PO PRN (08:04)
[2021-06-05] MEDS ORDERED: Glucagon,Human Recombinant 1 MG Vial IM PRN (09:42)
[2021-06-05] MEDS ORDERED: 50% Dextrose in Water 50 ML Syringe IVPUSH PRN (09:42)
[2021-06-05] MEDS: Enoxaparin 40 MG/0.4 ML Syringe SUBCUT SCH ×2 (10:22→22:00)
[2021-06-05] MEDS: Insulin Aspart 100 Units/ML 3 ML Pen SUBCUT SCH ×2 (11:50→17:32)
[2021-06-05] MEDS ORDERED: CLOBETASOL TOP PRN (17:02)
[2021-06-05] MEDS: guaiFENesin/Dextromethorphan 100-10 MG/5 ML Soln 10 ML Cup PO PRN (23:41)
[2021-06-06 08:01] LABS: CARBON DIOXIDE,CO2 20.1 mmol/L (21.0-32.0); POTASSIUM,K 4.2 mmol/L (3.5-5.1)
[2021-06-06] MEDS: Insulin Aspart 100 Units/ML 3 ML Pen SUBCUT SCH ×3 (08:15→17:54)
[2021-06-06] MEDS: Dexamethasone 4 MG Tab PO SCH (09:35)
[2021-06-06] MEDS: Sertraline 100 MG Tab PO SCH (09:36)
[2021-06-06] MEDS: Enoxaparin 40 MG/0.4 ML Syringe SUBCUT SCH ×2 (09:38→22:11)
[2021-06-06] MEDS: REMDESIVIR 100 MG in Sodium Chloride 0.9% 100 ML IV SCH (09:39)
[2021-06-06] MEDS: Cetirizine 10 MG Tab PO SCH (10:03)
[2021-06-06] MEDS: guaiFENesin/Dextromethorphan 100-10 MG/5 ML Soln 10 ML Cup PO PRN ×2 (11:58→22:17)
[2021-06-06] MEDS: Acetaminophen 325 MG Tab PO PRN ×2 (11:58→22:17)
[2021-06-07] MEDS: Melatonin 3 MG Tab PO PRN ×2 (00:17→21:00)
[2021-06-07] MEDS: Insulin Aspart 100 Units/ML 3 ML Pen SUBCUT SCH ×3 (07:26→17:41)
[2021-06-07 08:05] LABS: CARBON DIOXIDE,CO2 23.3 mmol/L (21.0-32.0); POTASSIUM,K 4.3 mmol/L (3.5-5.1)
[2021-06-07] MEDS: Cetirizine 10 MG Tab PO SCH (08:11)
[2021-06-07] MEDS: REMDESIVIR 100 MG in Sodium Chloride 0.9% 100 ML IV SCH (08:11)
[2021-06-07] MEDS: Dexamethasone 4 MG Tab PO SCH (08:11)
[2021-06-07] MEDS: Sertraline 100 MG Tab PO SCH (08:12)
[2021-06-07] MEDS: Enoxaparin 40 MG/0.4 ML Syringe SUBCUT SCH ×2 (09:51→21:01)
[2021-06-07] MEDS ORDERED: predniSONE 10 MG Tab PO SCH (14:00)
[2021-06-07] MEDS: guaiFENesin/Dextromethorphan 100-10 MG/5 ML Soln 10 ML Cup PO PRN (20:59)
[2021-06-07] MEDS: Acetaminophen 325 MG Tab PO PRN (21:00)
[2021-06-08] MEDS: Insulin Aspart 100 Units/ML 3 ML Pen SUBCUT SCH ×3 (06:39→17:02)
[2021-06-08 06:57] LABS: CARBON DIOXIDE,CO2 20.6 mmol/L (21.0-32.0); POTASSIUM,K 4.6 mmol/L (3.5-5.1)
[2021-06-08] MEDS: Sertraline 100 MG Tab PO SCH (08:29)
[2021-06-08] MEDS: Dexamethasone 4 MG Tab PO SCH (08:29)
[2021-06-08] MEDS: Cetirizine 10 MG Tab PO SCH (08:29)
[2021-06-08] MEDS: REMDESIVIR 100 MG in Sodium Chloride 0.9% 100 ML IV SCH (08:30)
[2021-06-08] MEDS: Enoxaparin 40 MG/0.4 ML Syringe SUBCUT SCH ×2 (10:26→21:20)
[2021-06-08] MEDS: Melatonin 3 MG Tab PO PRN (21:20)
[2021-06-08] MEDS: guaiFENesin/Dextromethorphan 100-10 MG/5 ML Soln 10 ML Cup PO PRN (21:20)
[2021-06-08] MEDS: Acetaminophen 325 MG Tab PO PRN (21:21)
[2021-06-09 07:45] LABS: CARBON DIOXIDE,CO2 24.2 mmol/L (21.0-32.0); POTASSIUM,K 4.3 mmol/L (3.5-5.1)
[2021-06-09] MEDS: Insulin Aspart 100 Units/ML 3 ML Pen SUBCUT SCH ×3 (08:34→18:35)
[2021-06-09] MEDS: Cetirizine 10 MG Tab PO SCH (08:36)
[2021-06-09] MEDS: Sertraline 100 MG Tab PO SCH (08:37)
[2021-06-09] MEDS: Dexamethasone 4 MG Tab PO SCH (08:37)
[2021-06-09] MEDS: REMDESIVIR 100 MG in Sodium Chloride 0.9% 100 ML IV SCH (08:38)
[2021-06-09] MEDS: Enoxaparin 40 MG/0.4 ML Syringe SUBCUT SCH ×2 (09:36→21:24)
[2021-06-09] MEDS: Acetaminophen 325 MG Tab PO PRN ×2 (11:01→23:49)
[2021-06-09] MEDS ORDERED: Loperamide 2 MG Cap PO ONE (12:12)
[2021-06-09] MEDS: Melatonin 3 MG Tab PO PRN (23:49)
[2021-06-10] MEDS: Insulin Aspart 100 Units/ML 3 ML Pen SUBCUT SCH ×2 (08:26→13:58)
[2021-06-10] MEDS: Dexamethasone 4 MG Tab PO SCH (10:02)
[2021-06-10] MEDS: Enoxaparin 40 MG/0.4 ML Syringe SUBCUT SCH (10:02)
[2021-06-10] MEDS: Sertraline 100 MG Tab PO SCH (10:03)
[2021-06-10] MEDS: Cetirizine 10 MG Tab PO SCH (10:03)
== END 2021-06-10 14:40 | disposition home or self-care (01) | DRG 177 ==
LOC: MW.ED 00:59 → MW.MS 06:22
PROVIDERS: ADMIT Internal Medicine; ATTEND Internal Medicine
PROC: XW033E5 Introduction of Remdesivir Anti-infective into Peripheral Vein, Percutaneous Approach, New Technology Group 5 (ICD-10-PCS; principal; 2021-06-05)
PROC: 3E0333Z Introduction of Anti-inflammatory into Peripheral Vein, Percutaneous Approach (ICD-10-PCS; 2021-06-05)
DX: U07.1 COVID-19 (principal); J12.82 Pneumonia due to coronavirus disease 2019; J96.01 Acute respiratory failure with hypoxia; N17.9 Acute kidney failure, unspecified; R11.2 Nausea with vomiting, unspecified; M19.90 Unspecified osteoarthritis, unspecified site; R19.7 Diarrhea, unspecified; E11.9 Type 2 diabetes mellitus without complications; Z88.1 Allergy status to other antibiotic agents; Z91.040 Latex allergy status; Z91.018 Allergy to other foods; Z88.0 Allergy status to penicillin; Z79.52 Long term (current) use of systemic steroids; Z79.899 Other long term (current) drug therapy; E86.0 Dehydration; E11.40 Type 2 diabetes mellitus with diabetic neuropathy, unspecified; F17.210 Nicotine dependence, cigarettes, uncomplicated; I10 Essential (primary) hypertension; G47.33 Obstructive sleep apnea (adult) (pediatric); F41.9 Anxiety disorder, unspecified; Z90.49 Acquired absence of other specified parts of digestive tract; Z90.89 Acquired absence of other organs; Z98.890 Other specified postprocedural states; Z79.4 Long term (current) use of insulin; Z90.710 Acquired absence of both cervix and uterus
CPT/HCPCS: 36415; 71045; 71275; 80048; 80076; 82550; 82728; 83605; 83615; 83880; 84145; 84484; 85025; 85379; 85730; 86140; 87635; 93005; 99285; J1100; Q9967; 80053; 82248; 82947; 85027; A9270-GY; J0248; J1650; J1815-GY; J7050; J8540; U0002

== ENCOUNTER 2022-03-13 01:14 | Inpatient (IN) | payer OTHER ==
[2022-03-13] MEDS ORDERED: Acetaminophen/oxyCODONE 325-10 MG Tab PO ONE ×2 (01:46→02:40)
[2022-03-13] MEDS ORDERED: Ketorolac 30 MG/ML SDV IM ONE (02:00)
[2022-03-13 02:47] LABS: CARBON DIOXIDE,CO2 25.1 mmol/L (21.0-32.0); POTASSIUM,K 3.8 mmol/L (3.5-5.1)
[2022-03-13] MEDS ORDERED: Ondansetron 4 MG/2 ML SDV IVPUSH ONE (03:06)
[2022-03-13] MEDS ORDERED: Morphine 4 MG/ML Syringe IVPUSH ONE (03:06)
[2022-03-13] MEDS ORDERED: VANCOmycin 2 GM/400 ML 2 GM in Premix Bag 1 BAG IV ONE (03:45)
[2022-03-13] MEDS ORDERED: Acetaminophen/oxyCODONE 325-10 MG Tab PO PRN (05:31)
[2022-03-13] MEDS ORDERED: 50% Dextrose in Water 50 ML Syringe IVPUSH PRN (05:37)
[2022-03-13] MEDS ORDERED: Glucagon,Human Recombinant 1 MG Vial IM PRN (05:37)
[2022-03-13] MEDS: Morphine 2 MG/ML SYRINGE IVPUSH PRN ×3 (06:00→20:09)
[2022-03-13] MEDS: Insulin Aspart 100 Units/ML 3 ML Pen SUBCUT SCH ×3 (07:15→16:59)
[2022-03-13] MEDS: Acetaminophen/oxyCODONE 325-5 MG Tab PO PRN ×3 (10:23→18:32)
[2022-03-13] MEDS: Pregabalin 200 MG Cap PO SCH ×2 (11:49→20:01)
[2022-03-13] MEDS: Enoxaparin 40 MG/0.4 ML Syringe SUBCUT SCH (11:49)
[2022-03-13] MEDS: Cetirizine 10 MG Tab PO SCH (11:50)
[2022-03-13] MEDS: Sertraline 100 MG Tab PO SCH ×2 (11:51→20:01)
[2022-03-13] MEDS: Hydrochlorothiazide 12.5 MG Cap PO SCH (16:01)
[2022-03-13] MEDS: Lisinopril 10 MG Tab PO SCH (16:01)
[2022-03-13] MEDS: Melatonin 3 MG Tab PO PRN (23:31)
[2022-03-14] MEDS: Insulin Aspart 100 Units/ML 3 ML Pen SUBCUT SCH ×3 (06:30→16:57)
[2022-03-14 06:56] LABS: CARBON DIOXIDE,CO2 25.4 mmol/L (21.0-32.0); POTASSIUM,K 4.3 mmol/L (3.5-5.1)
[2022-03-14] MEDS: Lisinopril 10 MG Tab PO SCH (08:34)
[2022-03-14] MEDS: Hydrochlorothiazide 12.5 MG Cap PO SCH (08:38)
[2022-03-14] MEDS: Sertraline 100 MG Tab PO SCH ×2 (08:39→20:04)
[2022-03-14] MEDS: Pregabalin 200 MG Cap PO SCH ×2 (08:40→20:04)
[2022-03-14] MEDS: Cetirizine 10 MG Tab PO SCH (08:41)
[2022-03-14] MEDS: Acetaminophen/oxyCODONE 325-5 MG Tab PO PRN ×3 (08:53→21:32)
[2022-03-14] MEDS: Enoxaparin 40 MG/0.4 ML Syringe SUBCUT SCH (11:47)
[2022-03-14] MEDS: VANCOmycin 1.5 GM/300 ML 1.5 GM in Premix Bag 1 BAG IV SCH (12:00)
[2022-03-14] MEDS: Levofloxacin/Dextrose 5%-Water 750 MG in Premix Bag 1 BAG IV SCH (12:02)
[2022-03-14] MEDS: Morphine 2 MG/ML SYRINGE IVPUSH PRN (14:07)
[2022-03-14] MEDS: TRIAMCINOLONE ACETONIDE 0.1% TOP PRN (14:10)
[2022-03-14] MEDS: Melatonin 3 MG Tab PO PRN (20:04)
[2022-03-15] MEDS: Morphine 2 MG/ML SYRINGE IVPUSH PRN ×3 (06:11→20:13)
[2022-03-15 06:22] LABS: CARBON DIOXIDE,CO2 25.7 mmol/L (21.0-32.0)
[2022-03-15] MEDS: Insulin Aspart 100 Units/ML 3 ML Pen SUBCUT SCH ×3 (06:40→17:28)
[2022-03-15] MEDS ORDERED: Ketorolac 30 MG/ML SDV IVPUSH ONE (09:41)
[2022-03-15] MEDS: Cetirizine 10 MG Tab PO SCH (11:35)
[2022-03-15] MEDS: Sertraline 100 MG Tab PO SCH (11:35)
[2022-03-15] MEDS: Pregabalin 200 MG Cap PO SCH ×2 (11:36→20:12)
[2022-03-15] MEDS: Hydrochlorothiazide 12.5 MG Cap PO SCH (11:38)
[2022-03-15] MEDS: Lisinopril 10 MG Tab PO SCH (11:42)
[2022-03-15] MEDS: Levofloxacin/Dextrose 5%-Water 750 MG in Premix Bag 1 BAG IV SCH (12:12)
[2022-03-15] MEDS: Enoxaparin 40 MG/0.4 ML Syringe SUBCUT SCH ×2 (12:14→20:12)
[2022-03-15] MEDS ORDERED: Sertraline 100 MG Tab ONE (12:26)
[2022-03-15] MEDS: VANCOmycin 2 GM/400 ML 2 GM in Premix Bag 1 BAG IV SCH (15:32)
[2022-03-15] MEDS: VANCOmycin 1.5 GM/300 ML 1.5 GM in Premix Bag 1 BAG IV SCH (15:40)
[2022-03-15] MEDS: Melatonin 3 MG Tab PO PRN (20:13)
[2022-03-15] MEDS: TRIAMCINOLONE ACETONIDE 0.1% TOP PRN (20:23)
[2022-03-16] MEDS: Insulin Aspart 100 Units/ML 3 ML Pen SUBCUT SCH ×3 (06:34→16:51)
[2022-03-16 07:17] LABS: CARBON DIOXIDE,CO2 27.6 mmol/L (21.0-32.0); POTASSIUM,K 4.3 mmol/L (3.5-5.1)
[2022-03-16] MEDS: Acetaminophen/oxyCODONE 325-5 MG Tab PO PRN ×2 (08:08→21:52)
[2022-03-16] MEDS: Hydrochlorothiazide 12.5 MG Cap PO SCH (08:11)
[2022-03-16] MEDS: Pregabalin 200 MG Cap PO SCH ×2 (08:11→20:50)
[2022-03-16] MEDS: Cetirizine 10 MG Tab PO SCH (08:11)
[2022-03-16] MEDS: Lisinopril 10 MG Tab PO SCH (08:12)
[2022-03-16] MEDS: Sertraline 100 MG Tab PO SCH (08:13)
[2022-03-16] MEDS: Enoxaparin 40 MG/0.4 ML Syringe SUBCUT SCH ×2 (08:15→20:50)
[2022-03-16] MEDS ORDERED: Ondansetron 4 MG/2 ML SDV IVPUSH ONE (09:44)
[2022-03-16] MEDS ORDERED: Polyethylene Glycol 3350 Powder 17 GM Packet PO ONE (10:14)
[2022-03-16] MEDS: Levofloxacin/Dextrose 5%-Water 750 MG in Premix Bag 1 BAG IV SCH (10:54)
[2022-03-16] MEDS: VANCOmycin 2 GM/400 ML 2 GM in Premix Bag 1 BAG IV SCH (15:03)
[2022-03-16 19:26] LABS: HEMOGLOBIN A1C 5.4 %
[2022-03-16] MEDS: Morphine 2 MG/ML SYRINGE IVPUSH PRN (20:45)
[2022-03-17 06:07] LABS: CARBON DIOXIDE,CO2 26.2 mmol/L (21.0-32.0); POTASSIUM,K 3.8 mmol/L (3.5-5.1)
[2022-03-17] MEDS ORDERED: TRIAMCINOLONE ACETONIDE 0.1% TOP PRN (07:35)
[2022-03-17] MEDS: Insulin Aspart 100 Units/ML 3 ML Pen SUBCUT SCH ×2 (07:44→11:43)
[2022-03-17] MEDS: Lisinopril 10 MG Tab PO SCH (08:45)
[2022-03-17] MEDS: Hydrochlorothiazide 12.5 MG Cap PO SCH (08:45)
[2022-03-17] MEDS: Cetirizine 10 MG Tab PO SCH (08:46)
[2022-03-17] MEDS: Sertraline 100 MG Tab PO SCH (08:46)
[2022-03-17] MEDS: Pregabalin 200 MG Cap PO SCH (08:46)
[2022-03-17] MEDS: Enoxaparin 40 MG/0.4 ML Syringe SUBCUT SCH (08:47)
[2022-03-17] MEDS: Levofloxacin/Dextrose 5%-Water 750 MG in Premix Bag 1 BAG IV SCH (09:48)
[2022-03-17] MEDS ORDERED: Ondansetron 4 MG/2 ML SDV IVPUSH ONE (12:46)
[2022-03-17] MEDS: VANCOmycin 2 GM/400 ML 2 GM in Premix Bag 1 BAG IV SCH (14:27)
== END 2022-03-17 17:00 | disposition home or self-care (01) | DRG 603 ==
LOC: MW.ED 01:14 → MW.MS 03:28 → OBSVTOIN 03-15 11:43
PROVIDERS: ADMIT Internal Medicine; ATTEND Internal Medicine
DX: L03.115 Cellulitis of right lower limb (principal); D84.821 Immunodeficiency due to drugs; L12.0 Bullous pemphigoid; M19.90 Unspecified osteoarthritis, unspecified site; I10 Essential (primary) hypertension; L40.50 Arthropathic psoriasis, unspecified; L40.3 Pustulosis palmaris et plantaris; Z20.822 Contact with and (suspected) exposure to COVID-19; F41.9 Anxiety disorder, unspecified; G47.30 Sleep apnea, unspecified; E11.9 Type 2 diabetes mellitus without complications; Z88.8 Allergy status to other drugs, medicaments and biological substances; Z88.0 Allergy status to penicillin; Z91.040 Latex allergy status; Z91.018 Allergy to other foods; Z79.899 Other long term (current) drug therapy; M79.604 Pain in right leg; Z87.891 Personal history of nicotine dependence; Z90.710 Acquired absence of both cervix and uterus; Z90.49 Acquired absence of other specified parts of digestive tract; Z88.1 Allergy status to other antibiotic agents
CPT/HCPCS: 36415 ×3; 72148; 73700; 80048; 80053 ×2; 80202 ×2; 81003; 82947 ×7; 83735 ×2; 85025 ×3; 87040 ×2; 87635; 93971; A9270 ×28; J1650 ×2; J1885 ×2; J1956; J2270 ×6; J2405; J3370 ×2; 83036; J1815-GY; U0002

== ENCOUNTER 2022-03-18 09:58 | Emergency (ER) | payer OTHER ==
[2022-03-18] MEDS ORDERED: Sodium Chloride 0.9% 2.5 ML Syringe FLUSH PRN (10:46)
[2022-03-18] MEDS ORDERED: Sodium Chloride 0.9% 10 ML Syringe FLUSH PRN (10:46)
[2022-03-18] MEDS ORDERED: Ondansetron 4 MG/2 ML SDV IVPUSH ONE (10:46)
[2022-03-18] MEDS ORDERED: Morphine 4 MG/ML Syringe IVPUSH ONE (10:47)
[2022-03-18 11:35] LABS: CARBON DIOXIDE,CO2 23.6 mmol/L (21.0-32.0); POTASSIUM,K 4.3 mmol/L (3.5-5.1)
[2022-03-18] MEDS ORDERED: Iopamidol 755 MG/ML 500 ML Multipack Bottle IVPUSH STA (11:53)
[2022-03-18] MEDS ORDERED: Morphine 4 MG/ML Syringe IVPUSH STA (12:09)
[2022-03-18 13:02] LABS: CORONAVIRUS COVID-19 NAA NEGATIVE (NEGATIVE); INFLUENZA A NAA NEGATIVE (NEGATIVE); INFLUENZA B NAA NEGATIVE (NEGATIVE)
[2022-03-18] MEDS ORDERED: Ketorolac 30 MG/ML SDV IVPUSH ONE (13:36)
== END 2022-03-18 14:15 | disposition home or self-care (01) ==
LOC: MW.ED 09:58
DX: K42.9 Umbilical hernia without obstruction or gangrene (principal); I10 Essential (primary) hypertension; E11.9 Type 2 diabetes mellitus without complications; E66.9 Obesity, unspecified; Z68.43 Body mass index [BMI] 50.0-59.9, adult; Z88.0 Allergy status to penicillin; Z91.040 Latex allergy status; Z88.1 Allergy status to other antibiotic agents; Z91.018 Allergy to other foods; Z79.899 Other long term (current) drug therapy; Z90.49 Acquired absence of other specified parts of digestive tract; Z90.710 Acquired absence of both cervix and uterus; Z20.822 Contact with and (suspected) exposure to COVID-19
CPT/HCPCS: 0240U; 36415; 74177; 80053; 81001; 83605; 83690; 84484; 84703; 85025; 87086; 93005; 96374; 96375; 96376; 99284; J1885; J2270; J2405; J3490; Q9967

== ENCOUNTER 2022-05-12 01:50 | Emergency (ER) | payer OTHER ==
[2022-05-12] MEDS ORDERED: Ondansetron 4 MG Tab.DIS PO ONE (01:53)
[2022-05-12] MEDS ORDERED: Ondansetron 4 MG/2 ML SDV IVPUSH ONE (02:15)
[2022-05-12] MEDS ORDERED: Lactated Ringers 1,000 ML IV STA ×2 (02:15→03:47)
[2022-05-12] MEDS ORDERED: Ketorolac 30 MG/ML SDV IVPUSH ONE (02:15)
[2022-05-12 02:48] LABS: CORONAVIRUS COVID-19 NAA NEGATIVE (NEGATIVE); INFLUENZA A NAA NEGATIVE (NEGATIVE); INFLUENZA B NAA NEGATIVE (NEGATIVE); RESPIRATORY SYNCYTIAL VIR NAA NEGATIVE (NEGATIVE)
[2022-05-12 02:58] LABS: BLOOD UREA NITROGEN,BUN 27 mg/dL (7.0-18.0); CARBON DIOXIDE,CO2 22.9 mmol/L (21.0-32.0); CHLORIDE,CL 102 mmol/L (98-107); GLUCOSE RANDOM 158 mg/dL (74-106); POTASSIUM,K 3.7 mmol/L (3.5-5.1); SODIUM,NA 137 mmol/L (136-145)
[2022-05-12 03:02] LABS: ESTIMATED GFR 46 mL/min (>60)
== END 2022-05-12 06:15 | disposition home or self-care (01) ==
LOC: MW.ED 01:50
DX: R11.2 Nausea with vomiting, unspecified (principal); R19.7 Diarrhea, unspecified; I10 Essential (primary) hypertension; E11.9 Type 2 diabetes mellitus without complications; Z88.0 Allergy status to penicillin; Z91.040 Latex allergy status; Z91.018 Allergy to other foods; Z79.899 Other long term (current) drug therapy; Z86.16 Personal history of COVID-19; Z90.49 Acquired absence of other specified parts of digestive tract; Z90.710 Acquired absence of both cervix and uterus; Z20.822 Contact with and (suspected) exposure to COVID-19
CPT/HCPCS: 0241U; 36415; 71045; 80053; 83605; 83735; 85025; 85610; 87040; 87077; 87154; 87184; 87186; 96361; 96374; 96375; 99285; J1885; J2405; J7120

== ENCOUNTER 2022-05-13 09:17 | Emergency (ER) | payer OTHER ==
[2022-05-13] MEDS ORDERED: Sodium Chloride 0.9% 2.5 ML Syringe FLUSH PRN (09:45)
[2022-05-13] MEDS ORDERED: Sodium Chloride 0.9% 10 ML Syringe FLUSH PRN (09:45)
[2022-05-13 10:57] LABS: BLOOD UREA NITROGEN,BUN 19 mg/dL (7.0-18.0); CARBON DIOXIDE,CO2 26.8 mmol/L (21.0-32.0); CHLORIDE,CL 101 mmol/L (98-107); GLUCOSE RANDOM 116 mg/dL (74-106); SODIUM,NA 133 mmol/L (136-145)
[2022-05-13 11:00] LABS: ESTIMATED GFR 61 mL/min (>60)
== END 2022-05-13 11:41 | disposition home or self-care (01) ==
LOC: MW.ED 09:17
DX: R78.81 Bacteremia (principal); I10 Essential (primary) hypertension; E11.9 Type 2 diabetes mellitus without complications; E66.9 Obesity, unspecified; Z88.0 Allergy status to penicillin; Z88.1 Allergy status to other antibiotic agents; Z91.040 Latex allergy status; Z88.8 Allergy status to other drugs, medicaments and biological substances; Z91.018 Allergy to other foods; Z79.899 Other long term (current) drug therapy
CPT/HCPCS: 36415; 80053; 83605; 85025; 87040; 99283

== ENCOUNTER 2022-05-14 13:55 | Emergency (ER) | payer OTHER ==
[2022-05-14] MEDS ORDERED: Sodium Chloride 0.9% 2.5 ML Syringe FLUSH PRN (15:11)
[2022-05-14] MEDS ORDERED: Sodium Chloride 0.9% 10 ML Syringe FLUSH PRN (15:11)
[2022-05-14] MEDS ORDERED: Levofloxacin/Dextrose 5%-Water 750 MG in Premix Bag 1 BAG IV ONE (15:18)
[2022-05-14 16:02] LABS: CARBON DIOXIDE,CO2 26.9 mmol/L (21.0-32.0); POTASSIUM,K 3.9 mmol/L (3.5-5.1)
== END 2022-05-14 18:42 | disposition home or self-care (01) ==
LOC: MW.ED 13:55
DX: L03.116 Cellulitis of left lower limb (principal); E11.9 Type 2 diabetes mellitus without complications; E66.9 Obesity, unspecified; Z88.0 Allergy status to penicillin; Z88.1 Allergy status to other antibiotic agents; Z91.040 Latex allergy status; Z91.018 Allergy to other foods; Z79.899 Other long term (current) drug therapy; Z68.43 Body mass index [BMI] 50.0-59.9, adult
CPT/HCPCS: 36415; 80053; 83605; 83735; 85025; 93971; 96365; 96366; 99284; J1956; J3490

== ENCOUNTER 2022-06-19 01:47 | Emergency (ER) | payer OTHER ==
[2022-06-19] MEDS ORDERED: Sodium Chloride 0.9% 10 ML Syringe FLUSH PRN (02:17)
[2022-06-19] MEDS ORDERED: Sodium Chloride 0.9% 2.5 ML Syringe FLUSH PRN (02:17)
[2022-06-19] MEDS ORDERED: Morphine 4 MG/ML Syringe IVPUSH ONE (02:18)
[2022-06-19] MEDS ORDERED: Ondansetron 4 MG/2 ML SDV IVPUSH ONE (02:18)
[2022-06-19] MEDS ORDERED: Iopamidol 755 MG/ML 500 ML Multipack Bottle IVPUSH ONE (02:24)
[2022-06-19] MEDS ORDERED: HYDROmorphone 1 MG/ML Syringe IVPUSH ONE (02:52)
[2022-06-19 03:36] LABS: CARBON DIOXIDE,CO2 22.7 mmol/L (21.0-32.0); POTASSIUM,K 3.6 mmol/L (3.5-5.1)
== END 2022-06-19 05:38 | disposition home or self-care (01) ==
LOC: MW.ED 01:47
DX: K29.70 Gastritis, unspecified, without bleeding (principal); I10 Essential (primary) hypertension; E11.9 Type 2 diabetes mellitus without complications; E66.9 Obesity, unspecified; Z68.43 Body mass index [BMI] 50.0-59.9, adult; Z72.0 Tobacco use; Z88.0 Allergy status to penicillin; Z88.1 Allergy status to other antibiotic agents; Z91.040 Latex allergy status; Z88.8 Allergy status to other drugs, medicaments and biological substances; Z91.018 Allergy to other foods; Z79.899 Other long term (current) drug therapy
CPT/HCPCS: 36415; 74177; 80053; 83605; 83690; 84484; 85025; 93005; 96374; 96375; 99284; J1170; J2270; J2405; J3490; Q9967

== ENCOUNTER 2022-07-04 01:51 | Emergency (ER) | payer OTHER ==
[2022-07-04] MEDS ORDERED: HYDROmorphone 1 MG/ML Syringe IVPUSH ONE (02:56)
[2022-07-04] MEDS ORDERED: Ondansetron 4 MG/2 ML SDV IVPUSH ONE (02:57)
[2022-07-04] MEDS ORDERED: Lactated Ringers 1,000 ML IV SCH (03:00)
[2022-07-04 03:59] LABS: CARBON DIOXIDE,CO2 27.3 mmol/L (21.0-32.0); POTASSIUM,K 4.2 mmol/L (3.5-5.1)
== END 2022-07-04 06:49 | disposition home or self-care (01) ==
LOC: MW.ED 01:51
DX: R10.31 Right lower quadrant pain (principal); R10.32 Left lower quadrant pain; R11.2 Nausea with vomiting, unspecified; I10 Essential (primary) hypertension; M19.90 Unspecified osteoarthritis, unspecified site; E11.9 Type 2 diabetes mellitus without complications; E66.9 Obesity, unspecified; Z68.43 Body mass index [BMI] 50.0-59.9, adult; Z88.0 Allergy status to penicillin; Z88.1 Allergy status to other antibiotic agents; Z91.040 Latex allergy status; Z88.8 Allergy status to other drugs, medicaments and biological substances; Z88.6 Allergy status to analgesic agent; Z91.018 Allergy to other foods; Z79.899 Other long term (current) drug therapy
CPT/HCPCS: 36415; 80053; 81003; 83605; 83690; 85025; 93005; 96361; 96374; 96375; 99284; J1170; J2405; J7120; 93010

== ENCOUNTER 2022-08-17 13:49 | Emergency (ER) | payer OTHER ==
[2022-08-17] MEDS ORDERED: Sodium Chloride 0.9% 10 ML Syringe FLUSH PRN (14:42)
[2022-08-17] MEDS ORDERED: Sodium Chloride 0.9% 1,000 ML IV ONE (14:42)
[2022-08-17] MEDS ORDERED: Ondansetron 4 MG/2 ML SDV IVPUSH ONE (14:45)
[2022-08-17] MEDS: Sodium Chloride 0.9% 2.5 ML Syringe FLUSH PRN ×2 (14:53→14:54)
[2022-08-17 15:42] LABS: CARBON DIOXIDE,CO2 24.4 mmol/L (21.0-32.0); POTASSIUM,K 3.7 mmol/L (3.5-5.1)
[2022-08-17 15:45] LABS: CORONAVIRUS COVID-19 NAA NEGATIVE (NEGATIVE); INFLUENZA A NAA NEGATIVE (NEGATIVE); INFLUENZA B NAA NEGATIVE (NEGATIVE); RESPIRATORY SYNCYTIAL VIR NAA NEGATIVE (NEGATIVE)
== END 2022-08-17 17:14 | disposition home or self-care (01) ==
LOC: MW.ED 13:49
DX: R11.0 Nausea (principal); F19.239 Other psychoactive substance dependence with withdrawal, unspecified; I10 Essential (primary) hypertension; E11.9 Type 2 diabetes mellitus without complications; E66.9 Obesity, unspecified; Z88.0 Allergy status to penicillin; Z91.040 Latex allergy status; Z91.018 Allergy to other foods; Z88.1 Allergy status to other antibiotic agents; Z88.8 Allergy status to other drugs, medicaments and biological substances; Z79.899 Other long term (current) drug therapy; Z86.16 Personal history of COVID-19; Z20.822 Contact with and (suspected) exposure to COVID-19; Z68.43 Body mass index [BMI] 50.0-59.9, adult
CPT/HCPCS: 0241U; 36415; 80053; 83690; 85025; 96361; 96374; 99284; J2405; J3490; J7030

== ENCOUNTER 2022-08-22 16:51 | Emergency (ER) | payer OTHER ==
[2022-08-22] MEDS ORDERED: Sodium Chloride 0.9% 1,000 ML IV ONE (17:58)
[2022-08-22] MEDS ORDERED: Ondansetron 4 MG/2 ML SDV IVPUSH ONE (17:59)
[2022-08-22] MEDS ORDERED: Alum Hydro/Mag Hydro/Simeth XS 15 ML, Lidocaine 2% 5 ML PO ONE ×2 (17:59)
[2022-08-22] MEDS ORDERED: Famotidine 20 MG/2 ML SDV IVPUSH ONE (17:59)
[2022-08-22 18:09] LABS: CARBON DIOXIDE,CO2 25.4 mmol/L (21.0-32.0); POTASSIUM,K 3.8 mmol/L (3.5-5.1)
[2022-08-22] MEDS ORDERED: Morphine 4 MG/ML Syringe IVPUSH STA (18:14)
[2022-08-22] MEDS ORDERED: HYDROmorphone 1 MG/ML Syringe IVPUSH STA ×2 (18:48→19:45)
[2022-08-22] MEDS ORDERED: Promethazine 25 MG/ML SDV IM STA (19:46)
== END 2022-08-22 23:38 | disposition home or self-care (01) ==
LOC: MW.ED 16:51
DX: R11.14 Bilious vomiting (principal); R10.84 Generalized abdominal pain; I12.9 Hypertensive chronic kidney disease with stage 1 through stage 4 chronic kidney disease, or unspecified chronic kidney disease; N18.31 Chronic kidney disease, stage 3a; E11.22 Type 2 diabetes mellitus with diabetic chronic kidney disease; E66.9 Obesity, unspecified; Z68.43 Body mass index [BMI] 50.0-59.9, adult; Z88.0 Allergy status to penicillin; Z88.1 Allergy status to other antibiotic agents; Z88.6 Allergy status to analgesic agent; Z88.8 Allergy status to other drugs, medicaments and biological substances; Z91.018 Allergy to other foods; Z91.040 Latex allergy status; Z79.899 Other long term (current) drug therapy; Z86.16 Personal history of COVID-19
CPT/HCPCS: 36415; 74176; 80053; 81001; 83690; 83735; 84550; 85025; 87045; 87046; 87338; 87449; 87899; 93005; 96361; 96372; 96374; 96375; 96376; 99284; A9270; J1170; J2405; J2550; J3490; J7030; 93010

== ENCOUNTER 2022-08-31 14:14 | Emergency (ER) | payer OTHER ==
[2022-08-31] MEDS ORDERED: Ondansetron 4 MG/2 ML SDV IVPUSH ONE (14:59)
[2022-08-31] MEDS ORDERED: fentaNYL 100 MCG/2 ML SDV IVPUSH ONE ×2 (14:59→15:46)
[2022-08-31] MEDS ORDERED: Promethazine 25 MG/ML SDV IM ONE (15:46)
[2022-09-02] MEDS ORDERED: LORazepam 2 MG/ML SDV ONE (21:45)
== END 2022-08-31 17:05 | disposition home or self-care (01) ==
LOC: MW.ED 14:14
DX: R10.84 Generalized abdominal pain (principal); I10 Essential (primary) hypertension; E11.9 Type 2 diabetes mellitus without complications; E66.9 Obesity, unspecified; Z68.43 Body mass index [BMI] 50.0-59.9, adult; Z88.0 Allergy status to penicillin; Z88.8 Allergy status to other drugs, medicaments and biological substances; Z91.040 Latex allergy status; Z91.018 Allergy to other foods; Z91.09 Other allergy status, other than to drugs and biological substances; Z79.899 Other long term (current) drug therapy
CPT/HCPCS: 96372; 96374; 96375; 96376; 99283; J2405; J2550; J3010; 99284

== ENCOUNTER 2022-08-31 17:50 | Emergency (ER) | payer OTHER | END 2022-08-31 21:07 | disposition left against medical advice (07) | LOC: MW.ED 17:50 | DX: Z53.21 Procedure and treatment not carried out due to patient leaving prior to being seen by health care provider (principal) | CPT/HCPCS: 93005 ==

== ENCOUNTER 2022-09-02 20:03 | Emergency (ER) | payer OTHER ==
[2022-09-02] MEDS ORDERED: Sodium Chloride 0.9% 10 ML Syringe FLUSH PRN (20:08)
[2022-09-02] MEDS ORDERED: Sodium Chloride 0.9% 2.5 ML Syringe FLUSH PRN (20:08)
[2022-09-02 21:23] LABS: CARBON DIOXIDE,CO2 25.7 mmol/L (21.0-32.0); POTASSIUM,K 2.9 mmol/L (3.5-5.1)
[2022-09-02] MEDS ORDERED: Potassium Chloride 20 MEQ in Premix Bag 1 BAG IV STA (21:29)
[2022-09-02 21:44] LABS: ACETAMINOPHEN <2.0 ug/mL; LIPASE 120 U/L (73-393)
[2022-09-02] MEDS ORDERED: niCARdipine/Normal Saline 20 MG/200 ML BAG IV SCH (22:00)
[2022-09-02] MEDS ORDERED: propofoL 100 ML ONE ×2 (22:09→23:45)
[2022-09-02] MEDS ORDERED: Rocuronium 50 MG/5 ML Vial IVPUSH ONE (22:13)
[2022-09-02] MEDS ORDERED: Rocuronium 100 MG/10 ML MDV IVPUSH ONE (22:13)
[2022-09-02] MEDS ORDERED: Etomidate 2 MG/ML 20 ML SDV IVPUSH ONE ×2 (22:14)
[2022-09-02] MEDS ORDERED: Succinylcholine 200 MG/10 ML MDV IVPUSH ONE ×2 (22:14)
[2022-09-02] MEDS: propofoL 100 ML IV SCH (22:22)
[2022-09-02] MEDS ORDERED: Midazolam 1 MG/ML 2 ML SDV IVPUSH ONE (22:25)
[2022-09-02] MEDS ORDERED: Midazolam 5 MG/ML SDV ONE (22:26)
[2022-09-02] MEDS ORDERED: LEVETIRACETAM IV STA ×2 (22:37)
[2022-09-02] MEDS ORDERED: WATER IV STA ×2 (22:37)
[2022-09-02] MEDS ORDERED: DEXTROSE 5% IV STA ×2 (22:37)
[2022-09-02] MEDS ORDERED: Midazolam 5 MG/ML SDV IVPUSH ONE (23:54)
[2022-09-03] MEDS ORDERED: LORazepam 2 MG/ML SDV IVPUSH STA (00:12)
[2022-09-03] MEDS: propofoL 100 ML IV SCH ×2 (00:23→05:03)
[2022-09-03 00:42] LABS: HEMOGLOBIN A1C 5.8 %
[2022-09-03] MEDS ORDERED: Propofol 200 MG/20 ML SDV IVPUSH STA (00:51)
[2022-09-03] MEDS ORDERED: fentaNYL 100 MCG/2 ML SDV IVPUSH STA (00:52)
[2022-09-03] MEDS ORDERED: fentaNYL/Normal Saline 2,500 MCG in Premix Bag 1 BAG IV PRN (00:55)
[2022-09-03] MEDS ORDERED: propofoL 100 ML ONE (01:09)
[2022-09-03] MEDS ORDERED: Sodium Chloride 0.9% 500 ML IV STA (01:26)
[2022-09-03 01:30] LABS: CORONAVIRUS COVID-19 NAA NEGATIVE (NEGATIVE); INFLUENZA A NAA NEGATIVE (NEGATIVE); INFLUENZA B NAA NEGATIVE (NEGATIVE)
[2022-09-03] MEDS ORDERED: Potassium Chloride 10% 20 MEQ/15 ML Soln 15 ML UD Cup OGTUBE STA (01:35)
[2022-09-03] MEDS: Potassium Chloride 100 ML IV SCH (06:32)
== END 2022-09-03 03:06 ==
LOC: MW.ED 20:03
DX: R56.9 Unspecified convulsions (principal); M47.816 Spondylosis without myelopathy or radiculopathy, lumbar region; I60.9 Nontraumatic subarachnoid hemorrhage, unspecified; E87.6 Hypokalemia; F12.90 Cannabis use, unspecified, uncomplicated; E11.22 Type 2 diabetes mellitus with diabetic chronic kidney disease; I12.9 Hypertensive chronic kidney disease with stage 1 through stage 4 chronic kidney disease, or unspecified chronic kidney disease; N18.31 Chronic kidney disease, stage 3a; E11.40 Type 2 diabetes mellitus with diabetic neuropathy, unspecified; E66.9 Obesity, unspecified; Z88.0 Allergy status to penicillin; Z91.040 Latex allergy status; Z88.8 Allergy status to other drugs, medicaments and biological substances; Z91.018 Allergy to other foods; Z86.16 Personal history of COVID-19; Z68.43 Body mass index [BMI] 50.0-59.9, adult; Z20.822 Contact with and (suspected) exposure to COVID-19; Z79.899 Other long term (current) drug therapy
CPT/HCPCS: 0240U; 31500; 36415; 70450; 71045; 72125; 72128; 72131; 80053; 80143; 80179; 80305; 80307; 81001; 82803; 83036; 83605; 83690; 83735; 84443; 84484; 85025; 87086; 87389; 96365; 96375; 99285; A9270; J0330; J1953; J2060; J2250; J2704; J3010; J3490; J7030; J7060

== ENCOUNTER 2022-11-08 02:49 | Emergency (ER) | payer OTHER ==
[2022-11-08] MEDS ORDERED: Sodium Chloride 0.9% 2.5 ML Syringe FLUSH PRN (03:09)
[2022-11-08] MEDS ORDERED: Sodium Chloride 0.9% 10 ML Syringe FLUSH PRN (03:09)
[2022-11-08] MEDS ORDERED: droPERidol 5 MG/2 ML SDV IVPUSH ONE (03:13)
[2022-11-08] MEDS ORDERED: HYDROmorphone 1 MG/ML Syringe IVPUSH ONE (03:13)
[2022-11-08] MEDS ORDERED: Naloxone 0.4 MG/ML SDV IVPUSH PRN (03:13)
[2022-11-08] MEDS ORDERED: Pantoprazole 40 MG in Sodium Chloride 0.9% 10 ML IVPUSH ONE (03:13)
[2022-11-08 03:19] LABS: BASOPHILS PERCENT AUTO 0.2 % (0.0-1.5); EOSINOPHILS ABSOLUTE AUTO 0.3 K/uL (0.0-0.7); EOSINOPHILS PERCENT AUTO 3.6 % (0.0-7.0); HEMATOCRIT 39.8 % (36.0-46.0); HEMOGLOBIN 13.7 g/dL (12.0-16.0); LYMPHOCYTES ABSOLUTE AUTO 1.3 K/uL (0.6-2.4); LYMPHOCYTES PERCENT AUTO 16.2 % (16.0-40.0); MEAN CORPUSCULAR HEMOGLOBIN 30.9 pg (27.0-32.0); MEAN CORPUSCULAR HGB CONC 34.4 g/dL (31.0-37.0); MEAN CORPUSCULAR VOLUME 89.8 fL (80.0-98.0); MONOCYTES ABSOLUTE AUTO 0.4 K/uL (0.0-0.8); MONOCYTES PERCENT AUTO 5.3 % (0.0-15.0); NEUTROPHILS ABSOLUTE AUTO 6.2 K/uL (1.4-5.7); NEUTROPHILS PERCENT AUTO 74.7 % (48.0-80.0); NRBC ABSOLUTE 0 K/uL; PLATELET COUNT,PLT 145 K/uL (150-400); RED BLOOD CELL COUNT 4.43 M/uL (4.30-5.90); WHITE BLOOD CELL COUNT,WBC 8.27 K/uL (4.0-11.0)
[2022-11-08] MEDS ORDERED: Iopamidol 755 MG/ML 500 ML Multipack Bottle IVPUSH ONE (03:25)
[2022-11-08 03:47] LABS: BILIRUBIN TOTAL 0.6 mg/dL (0.2-1.0); CALCIUM 9.7 mg/dL (8.5-10.1); CARBON DIOXIDE,CO2 25.9 mmol/L (21.0-32.0); CREATININE 1.2 mg/dL (0.6-1.0); EST CRCL DRUG DOSING (CG) 53.94 mL/min; POTASSIUM,K 4.1 mmol/L (3.5-5.1)
== END 2022-11-08 05:55 | disposition home or self-care (01) ==
LOC: MW.ED 02:49
DX: R11.10 Vomiting, unspecified (principal); M48.54XA Collapsed vertebra, not elsewhere classified, thoracic region, initial encounter for fracture; E66.01 Morbid (severe) obesity due to excess calories; Z68.42 Body mass index [BMI] 45.0-49.9, adult; I10 Essential (primary) hypertension; E11.9 Type 2 diabetes mellitus without complications; Z79.899 Other long term (current) drug therapy
CPT/HCPCS: 36415; 70450; 71045; 71275; 74174; 80053; 83690; 84484; 85025; 93005; 96374; 96375; 99284; C9113; J1170; J1790; J3490; Q9967; 93010

== ENCOUNTER 2022-12-26 00:29 | Emergency (ER) | payer OTHER ==
[2022-12-26] MEDS ORDERED: Sodium Chloride 0.9% 2.5 ML Syringe FLUSH PRN (00:34)
[2022-12-26] MEDS ORDERED: Sodium Chloride 0.9% 10 ML Syringe FLUSH PRN (00:34)
[2022-12-26] MEDS ORDERED: droPERidol 5 MG/2 ML SDV IVPUSH ONE (00:53)
[2022-12-26 00:54] LABS: BASOPHILS PERCENT AUTO 0.3 % (0.0-1.5); EOSINOPHILS ABSOLUTE AUTO 0.1 K/uL (0.0-0.7); EOSINOPHILS PERCENT AUTO 1.1 % (0.0-7.0); HEMATOCRIT 38.3 % (36.0-46.0); LYMPHOCYTES ABSOLUTE AUTO 1.7 K/uL (0.6-2.4); LYMPHOCYTES PERCENT AUTO 19.1 % (16.0-40.0); MEAN CORPUSCULAR HEMOGLOBIN 31.6 pg (27.0-32.0); MEAN CORPUSCULAR HGB CONC 33.9 g/dL (31.0-37.0); MONOCYTES ABSOLUTE AUTO 0.5 K/uL (0.0-0.8); NEUTROPHILS ABSOLUTE AUTO 6.5 K/uL (1.4-5.7); NEUTROPHILS PERCENT AUTO 73.5 % (48.0-80.0); NRBC ABSOLUTE 0 K/uL; PLATELET COUNT,PLT 177 K/uL (150-400); RED BLOOD CELL COUNT 4.12 M/uL (4.30-5.90); WHITE BLOOD CELL COUNT,WBC 8.84 K/uL (4.0-11.0)
[2022-12-26 01:33] LABS: ALBUMIN 3.7 g/dL (3.4-5.0); BILIRUBIN TOTAL 0.5 mg/dL (0.2-1.0); CALCIUM 9.6 mg/dL (8.5-10.1); CARBON DIOXIDE,CO2 21.1 mmol/L (21.0-32.0); CREATININE 1.1 mg/dL (0.6-1.0); EST CRCL DRUG DOSING (CG) 58.84 mL/min; POTASSIUM,K 3.4 mmol/L (3.5-5.1); PROTEIN TOTAL,TP 7.5 g/dL (6.4-8.2)
[2022-12-26] MEDS ORDERED: Sodium Chloride 0.9% 1,000 ML IV ONE (02:22)
[2022-12-26] MEDS ORDERED: Famotidine 20 MG/2 ML SDV IVPUSH ONE (03:13)
[2022-12-26] MEDS ORDERED: Morphine 2 MG/ML SYRINGE IVPUSH ONE (03:14)
[2022-12-26] MEDS ORDERED: Naloxone 0.4 MG/ML SDV IVPUSH PRN (03:14)
[2022-12-26] MEDS ORDERED: Iopamidol 755 MG/ML 500 ML Multipack Bottle IVPUSH ONE (03:45)
[2022-12-26 03:47] LABS: AMPHETAMINES SCREEN, URINE NEGATIVE (CUTOFF=500); BARBITURATE SCREEN,URINE NEGATIVE (CUTOFF=200); BENZODIAZEPINES SCREEN,URINE PRESUMPTIVE POSITIVE (CUTOFF=150); BUPRENORPHINE SCREEN,URINE NEGATIVE (CUTOFF=10); METHADONE SCREEN, URINE NEGATIVE (CUTOFF=200); METHAMPHETAMINES SCREEN, URINE NEGATIVE (CUTOFF=500); OXYCODONE SCREEN,URINE NEGATIVE (CUT0FF=100); PCP SCREEN,URINE NEGATIVE (CUTOFF=25); PROPOXYPHENE SCREEN,URINE NEGATIVE (CUTOFF=300); THC SCREEN,URINE 20 NG/ML PRESUMPTIVE POSITIVE (CUTOFF=50)
== END 2022-12-26 05:39 | disposition home or self-care (01) ==
LOC: MW.ED 00:29
DX: N83.202 Unspecified ovarian cyst, left side (principal); I10 Essential (primary) hypertension; E66.9 Obesity, unspecified; Z68.41 Body mass index [BMI] 40.0-44.9, adult; Z88.0 Allergy status to penicillin; Z91.040 Latex allergy status; Z91.018 Allergy to other foods; Z88.8 Allergy status to other drugs, medicaments and biological substances
CPT/HCPCS: 36415; 74177; 80053; 80305; 83605; 83690; 84484; 85025; 93005; 96361; 96374; 96375; 99284; J1790; J2270; J3490; J7030; Q9967; 93010

== ENCOUNTER 2022-12-27 12:40 | Emergency (ER) | payer OTHER ==
[2022-12-27] MEDS ORDERED: Sodium Chloride 0.9% 10 ML Syringe FLUSH PRN (12:56)
[2022-12-27] MEDS ORDERED: Sodium Chloride 0.9% 2.5 ML Syringe FLUSH PRN (12:56)
[2022-12-27] MEDS ORDERED: Sodium Chloride 0.9% 1,000 ML IV ONE (13:17)
[2022-12-27] MEDS ORDERED: Haloperidol Lactate 5 MG/ML SDV IM ONE (13:18)
[2022-12-27 13:23] LABS: BASOPHILS PERCENT AUTO 0.1 % (0.0-1.5); EOSINOPHILS PERCENT AUTO 0.1 % (0.0-7.0); HEMATOCRIT 44.1 % (36.0-46.0); HEMOGLOBIN 15.1 g/dL (12.0-16.0); LYMPHOCYTES PERCENT AUTO 8.1 % (16.0-40.0); MEAN CORPUSCULAR HEMOGLOBIN 31.5 pg (27.0-32.0); MEAN CORPUSCULAR HGB CONC 34.2 g/dL (31.0-37.0); MEAN CORPUSCULAR VOLUME 92.1 fL (80.0-98.0); MONOCYTES ABSOLUTE AUTO 0.9 K/uL (0.0-0.8); MONOCYTES PERCENT AUTO 7.6 % (0.0-15.0); NEUTROPHILS ABSOLUTE AUTO 9.9 K/uL (1.4-5.7); NEUTROPHILS PERCENT AUTO 84.1 % (48.0-80.0); NRBC ABSOLUTE 0 K/uL; PLATELET COUNT,PLT 211 K/uL (150-400); RED BLOOD CELL COUNT 4.79 M/uL (4.30-5.90)
[2022-12-27 13:54] LABS: ALBUMIN 4.1 g/dL (3.4-5.0); CALCIUM 9.6 mg/dL (8.5-10.1); CREATININE 1.1 mg/dL (0.6-1.0); EST CRCL DRUG DOSING (CG) 50.05 mL/min; PROTEIN TOTAL,TP 8.3 g/dL (6.4-8.2)
[2022-12-27 14:51] LABS: AMPHETAMINES SCREEN, URINE NEGATIVE (CUTOFF=500); BARBITURATE SCREEN,URINE NEGATIVE (CUTOFF=200); BENZODIAZEPINES SCREEN,URINE PRESUMPTIVE POSITIVE (CUTOFF=150); BUPRENORPHINE SCREEN,URINE NEGATIVE (CUTOFF=10); METHADONE SCREEN, URINE NEGATIVE (CUTOFF=200); METHAMPHETAMINES SCREEN, URINE NEGATIVE (CUTOFF=500); OXYCODONE SCREEN,URINE NEGATIVE (CUT0FF=100); PCP SCREEN,URINE NEGATIVE (CUTOFF=25); PROPOXYPHENE SCREEN,URINE NEGATIVE (CUTOFF=300); THC SCREEN,URINE 20 NG/ML PRESUMPTIVE POSITIVE (CUTOFF=50)
== END 2022-12-27 15:22 | disposition home or self-care (01) ==
LOC: MW.ED 12:40
DX: R11.2 Nausea with vomiting, unspecified (principal); F12.90 Cannabis use, unspecified, uncomplicated; I10 Essential (primary) hypertension; Z88.0 Allergy status to penicillin; Z88.8 Allergy status to other drugs, medicaments and biological substances; Z91.018 Allergy to other foods; Z79.899 Other long term (current) drug therapy; Z86.16 Personal history of COVID-19
CPT/HCPCS: 36415; 80053; 80305; 83690; 83735; 85025; 96361; 96372; 96374; 99284; J1630; J3490; J7030; 99283

== ENCOUNTER 2023-01-21 08:31 | Emergency (ER) | payer OTHER ==
[2023-01-21] MEDS ORDERED: Sodium Chloride 0.9% 10 ML Syringe FLUSH PRN (08:41)
[2023-01-21] MEDS ORDERED: Sodium Chloride 0.9% 2.5 ML Syringe FLUSH PRN (08:41)
[2023-01-21] MEDS ORDERED: Sodium Chloride 0.9% 1,000 ML IV ONE (08:41)
[2023-01-21] MEDS ORDERED: diphenhydrAMINE 50 MG/ML SDV IVPUSH ONE ×2 (08:51→10:46)
[2023-01-21] MEDS ORDERED: Famotidine 20 MG/2 ML SDV IVPUSH ONE (08:51)
[2023-01-21] MEDS ORDERED: Pantoprazole 40 MG in Sodium Chloride 0.9% 10 ML IVPUSH ONE (08:51)
[2023-01-21] MEDS ORDERED: Metoclopramide 10 MG/2 ML SDV IVPUSH ONE (08:51)
[2023-01-21 09:30] LABS: BASOPHILS PERCENT AUTO 0.1 % (0.0-1.5); HEMATOCRIT 46.5 % (36.0-46.0); HEMOGLOBIN 15.7 g/dL (12.0-16.0); LYMPHOCYTES ABSOLUTE AUTO 0.7 K/uL (0.6-2.4); LYMPHOCYTES PERCENT AUTO 7.3 % (16.0-40.0); MEAN CORPUSCULAR HEMOGLOBIN 31.5 pg (27.0-32.0); MEAN CORPUSCULAR HGB CONC 33.8 g/dL (31.0-37.0); MEAN CORPUSCULAR VOLUME 93.2 fL (80.0-98.0); MONOCYTES ABSOLUTE AUTO 0.3 K/uL (0.0-0.8); MONOCYTES PERCENT AUTO 2.5 % (0.0-15.0); NEUTROPHILS PERCENT AUTO 90.1 % (48.0-80.0); NRBC ABSOLUTE 0 K/uL; PLATELET COUNT,PLT 196 K/uL (150-400); RED BLOOD CELL COUNT 4.99 M/uL (4.30-5.90); WHITE BLOOD CELL COUNT,WBC 9.95 K/uL (4.0-11.0)
[2023-01-21 10:35] LABS: ALBUMIN 4.2 g/dL (3.4-5.0); BILIRUBIN TOTAL 0.6 mg/dL (0.2-1.0); CALCIUM 9.1 mg/dL (8.5-10.1); CARBON DIOXIDE,CO2 24.2 mmol/L (21.0-32.0); CREATININE 1.2 mg/dL (0.6-1.0); EST CRCL DRUG DOSING (CG) 45.36 mL/min; PROTEIN TOTAL,TP 8.6 g/dL (6.4-8.2)
[2023-01-21] MEDS ORDERED: Sodium Chloride 0.9% 500 ML IV SCH (10:45)
[2023-01-21] MEDS ORDERED: droPERidol 5 MG/2 ML SDV IVPUSH ONE ×2 (10:46→16:45)
[2023-01-21] MEDS ORDERED: Dicyclomine 10 MG Cap PO ONE (12:30)
[2023-01-21] MEDS ORDERED: Sucralfate Suspension 1 GM/10 ML Cup PO ONE (14:37)
[2023-01-21] MEDS ORDERED: Iopamidol 755 MG/ML 500 ML Multipack Bottle IVPUSH STA (15:14)
== END 2023-01-21 18:21 | disposition home or self-care (01) ==
LOC: MW.ED 08:31
DX: R10.13 Epigastric pain (principal); R10.11 Right upper quadrant pain; R10.84 Generalized abdominal pain; R07.9 Chest pain, unspecified; R11.14 Bilious vomiting; I10 Essential (primary) hypertension; E11.9 Type 2 diabetes mellitus without complications; E66.9 Obesity, unspecified; Z79.899 Other long term (current) drug therapy; Z86.16 Personal history of COVID-19; Z91.018 Allergy to other foods; Z88.0 Allergy status to penicillin; Z88.8 Allergy status to other drugs, medicaments and biological substances; Z91.040 Latex allergy status; Z88.1 Allergy status to other antibiotic agents; Z68.42 Body mass index [BMI] 45.0-49.9, adult
CPT/HCPCS: 36415; 74177; 80053; 83690; 84484; 85025; 87635; 93005; 96361; 96374; 96375; 96376; 99284; A9270; C9113; J1200; J1790; J2765; J3490; J7030; J7040; Q9967; 93010; U0002

== ENCOUNTER 2023-03-17 03:38 | Emergency (ER) | payer OTHER ==
[2023-03-17] MEDS ORDERED: Sodium Chloride 0.9% 1,000 ML IV ONE ×2 (03:49→04:06)
[2023-03-17] MEDS ORDERED: droPERidol 5 MG/2 ML SDV IVPUSH ONE ×2 (04:01→05:14)
[2023-03-17 04:03] LABS: BASOPHILS ABSOLUTE AUTO 0.04 K/uL (0.00-0.20); BASOPHILS PERCENT AUTO 0.4 % (0.0-1.0); EOSINOPHILS ABSOLUTE AUTO 0.13 K/uL (0.00-0.45); EOSINOPHILS PERCENT AUTO 1.3 % (0.0-6.0); HEMATOCRIT 44.4 % (37.0-47.0); HEMOGLOBIN 15.6 g/dL (12.0-16.0); IMMATURE GRAN ABSOLUTE AUTO 0.05 K/uL (0.00-0.05); IMMATURE GRAN PERCENT AUTO 0.5 % (0.0-0.4); LYMPHOCYTES ABSOLUTE AUTO 1.33 K/uL (1.00-4.80); LYMPHOCYTES PERCENT AUTO 12.9 % (24.0-44.0); MEAN CORPUSCULAR HEMOGLOBIN 31.4 pg (28.0-32.0); MEAN CORPUSCULAR HGB CONC 35.1 g/dL (32.0-36.0); MEAN CORPUSCULAR VOLUME 89.3 fL (83.0-99.0); MEAN PLATELET VOLUME 10.1 fL (9.4-12.3); MONOCYTES ABSOLUTE AUTO 0.28 K/uL (0.00-0.80); MONOCYTES PERCENT AUTO 2.7 % (0.0-8.0); NEUTROPHILS ABSOLUTE AUTO 8.45 K/uL (1.80-7.70); NEUTROPHILS PERCENT AUTO 82.2 % (41.0-71.0); PLATELET COUNT,PLT 222 K/uL (150-400); RED BLOOD CELL COUNT 4.97 M/uL (4.10-5.30); WHITE BLOOD CELL COUNT,WBC 10.28 K/uL (3.9-11.3)
[2023-03-17 04:25] LABS: ALBUMIN 4.2 g/dL (3.4-5.0); BILIRUBIN TOTAL 0.7 mg/dL (0.2-1.0); CALCIUM 9.8 mg/dL (8.5-10.1); CARBON DIOXIDE,CO2 25.6 mmol/L (21.0-32.0); CREATININE 1.1 mg/dL (0.6-1.0); EST CRCL DRUG DOSING (CG) 49.49 mL/min; POTASSIUM,K 3.8 mmol/L (3.5-5.1); PROTEIN TOTAL,TP 8.2 g/dL (6.4-8.2)
[2023-03-17 04:39] LABS: LACTIC ACID 1.6 mmol/L (0.4-2.0)
[2023-03-17] MEDS ORDERED: Dicyclomine 10 MG Cap PO ONE ×2 (05:14→07:22)
[2023-03-17] MEDS ORDERED: Sucralfate Suspension 1 GM/10 ML Cup PO ONE (05:15)
[2023-03-17] MEDS ORDERED: LORazepam 2 MG/ML SDV IVPUSH ONE (06:25)
[2023-03-17] MEDS ORDERED: Famotidine 20 MG/2 ML SDV IVPUSH ONE (07:27)
[2023-03-17] MEDS ORDERED: Haloperidol Lactate 5 MG/ML SDV IM ONE (07:28)
[2023-03-17] MEDS ORDERED: diphenhydrAMINE 50 MG/ML SDV IVPUSH ONE (07:29)
== END 2023-03-17 10:24 | disposition home or self-care (01) ==
LOC: MW.ED 03:38
DX: R10.84 Generalized abdominal pain (principal); R11.10 Vomiting, unspecified; G47.30 Sleep apnea, unspecified; E11.9 Type 2 diabetes mellitus without complications; I10 Essential (primary) hypertension; Z88.0 Allergy status to penicillin; E66.9 Obesity, unspecified; Z68.42 Body mass index [BMI] 45.0-49.9, adult; Z91.040 Latex allergy status; Z88.1 Allergy status to other antibiotic agents; Z91.018 Allergy to other foods; Z88.6 Allergy status to analgesic agent; Z86.16 Personal history of COVID-19; Z79.899 Other long term (current) drug therapy
CPT/HCPCS: 36415; 71045; 74018; 80053; 83605; 83690; 84484; 85025; 93005; 96361; 96372; 96374; 96375; 96376; 99284; A9270; J1200; J1630; J1790; J2060; J3490; J7030; 93010

== ENCOUNTER 2023-04-05 10:33 | Emergency (ER) | payer OTHER ==
[2023-04-05] MEDS ORDERED: Sodium Chloride 0.9% 1,000 ML IV ONE (10:41)
[2023-04-05] MEDS ORDERED: HYDROmorphone 1 MG/ML Syringe IVPUSH ONE (10:41)
[2023-04-05] MEDS ORDERED: droPERidol 5 MG/2 ML SDV IVPUSH ONE (10:43)
[2023-04-05 11:07] LABS: BASOPHILS ABSOLUTE AUTO 0.04 K/uL (0.00-0.20); BASOPHILS PERCENT AUTO 0.5 % (0.0-1.0); EOSINOPHILS ABSOLUTE AUTO 0.19 K/uL (0.00-0.45); EOSINOPHILS PERCENT AUTO 2.2 % (0.0-6.0); HEMATOCRIT 40.2 % (37.0-47.0); HEMOGLOBIN 13.9 g/dL (12.0-16.0); IMMATURE GRAN ABSOLUTE AUTO 0.03 K/uL (0.00-0.05); IMMATURE GRAN PERCENT AUTO 0.4 % (0.0-0.4); LYMPHOCYTES ABSOLUTE AUTO 0.69 K/uL (1.00-4.80); LYMPHOCYTES PERCENT AUTO 8.1 % (24.0-44.0); MEAN CORPUSCULAR HEMOGLOBIN 31.4 pg (28.0-32.0); MEAN CORPUSCULAR HGB CONC 34.6 g/dL (32.0-36.0); MEAN CORPUSCULAR VOLUME 90.7 fL (83.0-99.0); MEAN PLATELET VOLUME 9.5 fL (9.4-12.3); MONOCYTES ABSOLUTE AUTO 0.56 K/uL (0.00-0.80); MONOCYTES PERCENT AUTO 6.6 % (0.0-8.0); NEUTROPHILS ABSOLUTE AUTO 6.98 K/uL (1.80-7.70); NEUTROPHILS PERCENT AUTO 82.2 % (41.0-71.0); PLATELET COUNT,PLT 186 K/uL (150-400); RED BLOOD CELL COUNT 4.43 M/uL (4.10-5.30); WHITE BLOOD CELL COUNT,WBC 8.49 K/uL (3.9-11.3)
[2023-04-05 11:26] LABS: AMPHETAMINES SCREEN, URINE NEGATIVE (CUTOFF=500); BARBITURATE SCREEN,URINE NEGATIVE (CUTOFF=200); BENZODIAZEPINES SCREEN,URINE PRESUMPTIVE POSITIVE (CUTOFF=150); BUPRENORPHINE SCREEN,URINE NEGATIVE (CUTOFF=10); METHADONE SCREEN, URINE NEGATIVE (CUTOFF=200); METHAMPHETAMINES SCREEN, URINE NEGATIVE (CUTOFF=500); OXYCODONE SCREEN,URINE NEGATIVE (CUT0FF=100); PCP SCREEN,URINE NEGATIVE (CUTOFF=25); THC SCREEN,URINE 20 NG/ML PRESUMPTIVE POSITIVE (CUTOFF=50)
[2023-04-05 11:56] LABS: A/G RATIO 0.9 (0.9-1.6); ALANINE AMINOTRANSFERASE,ALT 33 IU/L (14-63); ALBUMIN 3.7 g/dL (3.4-5.0); ALKALINE PHOSPHATASE 74 U/L (46-116); ASPARTATE AMNIOTRANSFERASE,AST 16 IU/L (15-37); BILIRUBIN TOTAL 0.8 mg/dL (0.2-1.0); BLOOD UREA NITROGEN,BUN 17 mg/dL (7.0-18.0); CALCIUM 9.3 mg/dL (8.5-10.1); CARBON DIOXIDE,CO2 25.6 mmol/L (21.0-32.0); CHLORIDE,CL 103 mmol/L (98-107); CREATININE 1.2 mg/dL (0.6-1.0); EST CRCL DRUG DOSING (CG) 45.36 mL/min; ETHANOL BLOOD MEDICAL <3 mg/dL; GLUCOSE RANDOM 173 mg/dL (74-106); LIPASE 33 U/L (16-77); MAGNESIUM 1.7 mg/dL (1.8-2.4); POTASSIUM,K 3.8 mmol/L (3.5-5.1); PROTEIN TOTAL,TP 7.7 g/dL (6.4-8.2); SODIUM,NA 139 mmol/L (136-145)
[2023-04-05 11:58] LABS: ESTIMATED GFR 54 mL/min (>60)
== END 2023-04-05 14:55 | disposition home or self-care (01) ==
LOC: MW.ED 10:33
DX: R10.84 Generalized abdominal pain (principal); Z86.16 Personal history of COVID-19; E11.9 Type 2 diabetes mellitus without complications; E66.9 Obesity, unspecified; I10 Essential (primary) hypertension; Z79.899 Other long term (current) drug therapy; Z88.0 Allergy status to penicillin; Z88.8 Allergy status to other drugs, medicaments and biological substances; Z88.1 Allergy status to other antibiotic agents; Z91.018 Allergy to other foods; Z91.040 Latex allergy status; Z68.42 Body mass index [BMI] 45.0-49.9, adult
CPT/HCPCS: 36415; 80053; 80305; 80307; 83690; 83735; 84484; 85025; 96361; 96374; 96375; 99284; J1170; J1790; J7030

== ENCOUNTER 2023-04-23 06:19 | Emergency (ER) | payer OTHER ==
[2023-04-23] MEDS ORDERED: droPERidol 5 MG/2 ML SDV IVPUSH ONE (07:49)
[2023-04-23 07:50] LABS: BASOPHILS ABSOLUTE AUTO 0.02 K/uL (0.00-0.20); BASOPHILS PERCENT AUTO 0.2 % (0.0-1.0); EOSINOPHILS ABSOLUTE AUTO 0.01 K/uL (0.00-0.45); EOSINOPHILS PERCENT AUTO 0.1 % (0.0-6.0); HEMATOCRIT 44.7 % (37.0-47.0); HEMOGLOBIN 15.5 g/dL (12.0-16.0); IMMATURE GRAN ABSOLUTE AUTO 0.05 K/uL (0.00-0.05); IMMATURE GRAN PERCENT AUTO 0.6 % (0.0-0.4); LYMPHOCYTES ABSOLUTE AUTO 1.43 K/uL (1.00-4.80); LYMPHOCYTES PERCENT AUTO 16.5 % (24.0-44.0); MEAN CORPUSCULAR HEMOGLOBIN 31.3 pg (28.0-32.0); MEAN CORPUSCULAR HGB CONC 34.7 g/dL (32.0-36.0); MEAN CORPUSCULAR VOLUME 90.1 fL (83.0-99.0); MEAN PLATELET VOLUME 10.3 fL (9.4-12.3); MONOCYTES PERCENT AUTO 4.6 % (0.0-8.0); NEUTROPHILS ABSOLUTE AUTO 6.78 K/uL (1.80-7.70); PLATELET COUNT,PLT 208 K/uL (150-400); RED BLOOD CELL COUNT 4.96 M/uL (4.10-5.30); WHITE BLOOD CELL COUNT,WBC 8.69 K/uL (3.9-11.3)
[2023-04-23 07:56] LABS: ALANINE AMINOTRANSFERASE,ALT 22 IU/L (14-63); ALBUMIN 3.9 g/dL (3.4-5.0); ALKALINE PHOSPHATASE 74 U/L (46-116); ASPARTATE AMNIOTRANSFERASE,AST 16 IU/L (15-37); BILIRUBIN TOTAL 0.8 mg/dL (0.2-1.0); BLOOD UREA NITROGEN,BUN 16 mg/dL (7.0-18.0); CALCIUM 9.8 mg/dL (8.5-10.1); CARBON DIOXIDE,CO2 24.8 mmol/L (21.0-32.0); CHLORIDE,CL 105 mmol/L (98-107); CREATININE 1.2 mg/dL (0.6-1.0); GLUCOSE RANDOM 197 mg/dL (74-106); POTASSIUM,K 3.8 mmol/L (3.5-5.1); PROTEIN TOTAL,TP 8.5 g/dL (6.4-8.2); SODIUM,NA 140 mmol/L (136-145)
[2023-04-23 07:57] LABS: A/G RATIO 0.9 (0.9-1.6); ESTIMATED GFR 54 mL/min (>60)
[2023-04-23] MEDS ORDERED: Sodium Chloride 0.9% 1,000 ML IV ONE (07:57)
== END 2023-04-23 12:16 | disposition home or self-care (01) ==
LOC: MW.ED 06:19
DX: R11.2 Nausea with vomiting, unspecified (principal); I10 Essential (primary) hypertension; E11.9 Type 2 diabetes mellitus without complications; Z88.0 Allergy status to penicillin; Z88.1 Allergy status to other antibiotic agents; Z88.5 Allergy status to narcotic agent; Z88.6 Allergy status to analgesic agent; Z91.040 Latex allergy status; Z91.018 Allergy to other foods; Z86.16 Personal history of COVID-19; Z79.84 Long term (current) use of oral hypoglycemic drugs; Z79.899 Other long term (current) drug therapy
CPT/HCPCS: 36415; 80053; 85025; 96361; 96374; 99284; J1790; J7030

== ENCOUNTER 2023-04-28 15:59 | Emergency (ER) | payer OTHER ==
[2023-04-28] MEDS ORDERED: Sodium Chloride 0.9% 1,000 ML IV ONE (16:16)
[2023-04-28] MEDS ORDERED: Ketorolac 30 MG/ML SDV IVPUSH ONE (16:39)
[2023-04-28] MEDS ORDERED: Promethazine 25 MG/ML SDV IM ONE (16:39)
[2023-04-28 17:16] LABS: BASOPHILS ABSOLUTE AUTO 0.04 K/uL (0.00-0.20); BASOPHILS PERCENT AUTO 0.4 % (0.0-1.0); EOSINOPHILS ABSOLUTE AUTO 0.01 K/uL (0.00-0.45); EOSINOPHILS PERCENT AUTO 0.1 % (0.0-6.0); HEMATOCRIT 45.4 % (37.0-47.0); HEMOGLOBIN 15.8 g/dL (12.0-16.0); IMMATURE GRAN ABSOLUTE AUTO 0.04 K/uL (0.00-0.05); IMMATURE GRAN PERCENT AUTO 0.4 % (0.0-0.4); LYMPHOCYTES ABSOLUTE AUTO 2.37 K/uL (1.00-4.80); LYMPHOCYTES PERCENT AUTO 23.7 % (24.0-44.0); MEAN CORPUSCULAR HGB CONC 34.8 g/dL (32.0-36.0); MEAN CORPUSCULAR VOLUME 89.2 fL (83.0-99.0); MEAN PLATELET VOLUME 10.1 fL (9.4-12.3); MONOCYTES ABSOLUTE AUTO 0.64 K/uL (0.00-0.80); MONOCYTES PERCENT AUTO 6.4 % (0.0-8.0); NEUTROPHILS ABSOLUTE AUTO 6.88 K/uL (1.80-7.70); PLATELET COUNT,PLT 217 K/uL (150-400); RED BLOOD CELL COUNT 5.09 M/uL (4.10-5.30); WHITE BLOOD CELL COUNT,WBC 9.98 K/uL (3.9-11.3)
[2023-04-28 17:20] LABS: APPEARANCE,URINE CLEAR; COLOR,URINE YELLOW; GLUCOSE,URINE 500 mg/dL (NEGATIVE); KETONES,URINE 15 mg/dL (NEGATIVE); LEUKOCYTE ESTERASE,URINE NEGATIVE (NEGATIVE); NITRITE,URINE NEGATIVE (NEGATIVE); OCCULT BLOOD,URINE NEGATIVE (NEGATIVE); PH,URINE 5.5 (5.0-8.0); PROTEIN,URINE 30 mg/dL (NEGATIVE); UROBILINOGEN,URINE 0.2 EU/dL (<2.0)
[2023-04-28 17:30] LABS: BILIRUBIN,URINE SMALL (NEGATIVE)
[2023-04-28 17:32] LABS: RBC,URINE NONE SEEN (0-2/HPF)
[2023-04-28 17:33] LABS: BACTERIA,URINE FEW (NEGATIVE); EPITHELIAL CELLS,URINE MODERATE (NONE-FEW)
[2023-04-28 17:34] LABS: AMPHETAMINES SCREEN, URINE NEGATIVE (CUTOFF=500); BARBITURATE SCREEN,URINE NEGATIVE (CUTOFF=200); BENZODIAZEPINES SCREEN,URINE PRESUMPTIVE POSITIVE (CUTOFF=150); BUPRENORPHINE SCREEN,URINE NEGATIVE (CUTOFF=10); METHADONE SCREEN, URINE NEGATIVE (CUTOFF=200); METHAMPHETAMINES SCREEN, URINE NEGATIVE (CUTOFF=500); OXYCODONE SCREEN,URINE NEGATIVE (CUT0FF=100); PCP SCREEN,URINE NEGATIVE (CUTOFF=25); THC SCREEN,URINE 20 NG/ML PRESUMPTIVE POSITIVE (CUTOFF=50)
[2023-04-28 17:50] LABS: A/G RATIO 0.9 (0.9-1.6); ALBUMIN 3.7 g/dL (3.4-5.0); BILIRUBIN TOTAL 0.9 mg/dL (0.2-1.0); CALCIUM 9.3 mg/dL (8.5-10.1); EST CRCL DRUG DOSING (CG) 54.44 mL/min; POTASSIUM,K 3.8 mmol/L (3.5-5.1); PROTEIN TOTAL,TP 7.9 g/dL (6.4-8.2)
[2023-04-28] MEDS ORDERED: Polyethylene Glycol 3350 Powder 17 GM Packet PO ONE (20:21)
== END 2023-04-28 21:34 | disposition home or self-care (01) ==
LOC: MW.ED 15:59
DX: K59.00 Constipation, unspecified (principal); I10 Essential (primary) hypertension; E11.9 Type 2 diabetes mellitus without complications; E66.9 Obesity, unspecified; Z86.16 Personal history of COVID-19; Z90.49 Acquired absence of other specified parts of digestive tract; Z90.710 Acquired absence of both cervix and uterus; Z79.899 Other long term (current) drug therapy; Z88.0 Allergy status to penicillin; Z88.8 Allergy status to other drugs, medicaments and biological substances; Z88.1 Allergy status to other antibiotic agents; Z88.5 Allergy status to narcotic agent; Z91.018 Allergy to other foods; Z91.040 Latex allergy status; Z68.42 Body mass index [BMI] 45.0-49.9, adult
CPT/HCPCS: 36415; 74176; 80053; 80305; 81001; 83690; 85025; 96361; 96372; 96374; 99284; A9270; J1885; J2550; J7030

== ENCOUNTER 2023-11-03 16:50 | Emergency (ER) | payer OTHER ==
[2023-11-03 19:19] LABS: BASOPHILS ABSOLUTE AUTO 0.05 K/uL (0.00-0.20); BASOPHILS PERCENT AUTO 0.4 % (0.0-1.0); EOSINOPHILS PERCENT AUTO 0.9 % (0.0-6.0); HEMATOCRIT 43.6 % (37.0-47.0); HEMOGLOBIN 14.4 g/dL (12.0-16.0); IMMATURE GRAN ABSOLUTE AUTO 0.04 K/uL (0.00-0.05); IMMATURE GRAN PERCENT AUTO 0.4 % (0.0-0.4); LYMPHOCYTES ABSOLUTE AUTO 1.49 K/uL (1.00-4.80); LYMPHOCYTES PERCENT AUTO 13.3 % (24.0-44.0); MEAN CORPUSCULAR HEMOGLOBIN 29.4 pg (28.0-32.0); MONOCYTES ABSOLUTE AUTO 0.63 K/uL (0.00-0.80); MONOCYTES PERCENT AUTO 5.6 % (0.0-8.0); NEUTROPHILS ABSOLUTE AUTO 8.87 K/uL (1.80-7.70); NEUTROPHILS PERCENT AUTO 79.4 % (41.0-71.0); PLATELET COUNT,PLT 192 K/uL (150-400); WHITE BLOOD CELL COUNT,WBC 11.18 K/uL (3.9-11.3)
[2023-11-03 19:41] LABS: A/G RATIO 0.9 (0.9-1.6); ALBUMIN 3.3 g/dL (3.4-5.0); BILIRUBIN TOTAL 0.6 mg/dL (0.2-1.0); CALCIUM 8.8 mg/dL (8.5-10.1); CARBON DIOXIDE,CO2 28.9 mmol/L (21.0-32.0); CREATININE 1.3 mg/dL (0.6-1.0); EST CRCL DRUG DOSING (CG) 41.87 mL/min; POTASSIUM,K 4.1 mmol/L (3.5-5.1)
[2023-11-03 19:44] LABS: MAGNESIUM 2.1 mg/dL (1.8-2.4)
== END 2023-11-03 20:33 | disposition home or self-care (01) ==
LOC: MW.ED 16:50
DX: R11.0 Nausea (principal); I10 Essential (primary) hypertension; E11.9 Type 2 diabetes mellitus without complications; Z75.8 Other problems related to medical facilities and other health care; Z88.6 Allergy status to analgesic agent; Z88.0 Allergy status to penicillin; Z91.010 Allergy to peanuts; Z91.018 Allergy to other foods; Z88.8 Allergy status to other drugs, medicaments and biological substances; Z88.5 Allergy status to narcotic agent; Z79.899 Other long term (current) drug therapy; Z90.49 Acquired absence of other specified parts of digestive tract; Z90.710 Acquired absence of both cervix and uterus
CPT/HCPCS: 36415; 80053; 83690; 83735; 84484; 85025; 93005; 93010; 99282; 99284

== ENCOUNTER 2024-03-15 22:49 | Emergency (ER) | payer OTHER ==
[2024-03-15] MEDS ORDERED: droPERidol 5 MG/2 ML SDV IVPUSH ONE (23:31)
[2024-03-15] MEDS: Pantoprazole 40 MG in Sodium Chloride 0.9% 10 ML IVPUSH ONE (23:56)
[2024-03-15] MEDS: droPERidol 5 MG/2 ML SDV IVPUSH ONE (23:56)
[2024-03-15] MEDS: Sodium Chloride 0.9% 10 ML Syringe FLUSH PRN (23:56)
[2024-03-16 00:09] LABS: BASOPHILS ABSOLUTE AUTO 0.04 K/uL (0.00-0.20); BASOPHILS PERCENT AUTO 0.3 % (0.0-1.0); EOSINOPHILS ABSOLUTE AUTO 0.09 K/uL (0.00-0.45); EOSINOPHILS PERCENT AUTO 0.7 % (0.0-6.0); HEMATOCRIT 46.8 % (37.0-47.0); HEMOGLOBIN 15.8 g/dL (12.0-16.0); IMMATURE GRAN ABSOLUTE AUTO 0.17 K/uL (0.00-0.05); IMMATURE GRAN PERCENT AUTO 1.4 % (0.0-0.4); LYMPHOCYTES ABSOLUTE AUTO 1.88 K/uL (1.00-4.80); LYMPHOCYTES PERCENT AUTO 15.2 % (24.0-44.0); MEAN CORPUSCULAR HEMOGLOBIN 29.8 pg (28.0-32.0); MEAN CORPUSCULAR HGB CONC 33.8 g/dL (32.0-36.0); MEAN CORPUSCULAR VOLUME 88.3 fL (83.0-99.0); MEAN PLATELET VOLUME 9.7 fL (9.4-12.3); MONOCYTES ABSOLUTE AUTO 0.58 K/uL (0.00-0.80); MONOCYTES PERCENT AUTO 4.7 % (0.0-8.0); NEUTROPHILS ABSOLUTE AUTO 9.63 K/uL (1.80-7.70); NEUTROPHILS PERCENT AUTO 77.7 % (41.0-71.0); PLATELET COUNT,PLT 213 K/uL (150-400); WHITE BLOOD CELL COUNT,WBC 12.39 K/uL (3.9-11.3)
[2024-03-16 00:13] LABS: APPEARANCE,URINE CLEAR; BILIRUBIN,URINE NEGATIVE (NEGATIVE); COLOR,URINE YELLOW; GLUCOSE,URINE 500 mg/dL (NEGATIVE); KETONES,URINE NEGATIVE (NEGATIVE); LEUKOCYTE ESTERASE,URINE NEGATIVE (NEGATIVE); NITRITE,URINE NEGATIVE (NEGATIVE); OCCULT BLOOD,URINE NEGATIVE (NEGATIVE); PH,URINE 7.5 (5.0-8.0); PROTEIN,URINE NEGATIVE (NEGATIVE); UROBILINOGEN,URINE 0.2 EU/dL (<2.0)
[2024-03-16 00:59] LABS: A/G RATIO 0.9 (0.9-1.6); ALBUMIN 4.1 g/dL (3.4-5.0); BILIRUBIN TOTAL 0.6 mg/dL (0.2-1.0); CALCIUM 9.8 mg/dL (8.5-10.1); CARBON DIOXIDE,CO2 24.2 mmol/L (21.0-32.0); CREATININE 1.4 mg/dL (0.6-1.0); EST CRCL DRUG DOSING (CG) 38.44 mL/min; POTASSIUM,K 3.6 mmol/L (3.5-5.1); PROTEIN TOTAL,TP 8.6 g/dL (6.4-8.2)
[2024-03-16] MEDS: Alum Hydrox/Mag Hydrox/Simeth 15 ML, Metoclopramide 5 MG, Lidocaine 2% 5 ML PO ONE (02:04)
== END 2024-03-16 02:32 | disposition home or self-care (01) ==
LOC: MW.ED 22:49
DX: R11.14 Bilious vomiting (principal); R10.84 Generalized abdominal pain; R19.8 Other specified symptoms and signs involving the digestive system and abdomen; G89.29 Other chronic pain; I10 Essential (primary) hypertension; E11.9 Type 2 diabetes mellitus without complications; E66.9 Obesity, unspecified; Z79.84 Long term (current) use of oral hypoglycemic drugs; Z79.899 Other long term (current) drug therapy; Z79.891 Long term (current) use of opiate analgesic; Z90.49 Acquired absence of other specified parts of digestive tract; Z90.710 Acquired absence of both cervix and uterus; Z91.018 Allergy to other foods; Z88.0 Allergy status to penicillin; Z88.1 Allergy status to other antibiotic agents; Z88.6 Allergy status to analgesic agent; Z91.040 Latex allergy status; Z88.5 Allergy status to narcotic agent; Z88.8 Allergy status to other drugs, medicaments and biological substances; Z68.43 Body mass index [BMI] 50.0-59.9, adult
CPT/HCPCS: 36415; 72131; 74176; 80053; 81003; 83605; 83690; 83735; 83880; 85025; 93005; 96374; 96375; 99284; A9270; J1790; J2470; J3490; 93010; 99283

== ENCOUNTER 2024-11-06 19:15 | Emergency (ER) | payer OTHER ==
[2024-11-06 19:44] LABS: BASOPHILS ABSOLUTE AUTO 0.05 K/uL (0.00-0.20); BASOPHILS PERCENT AUTO 0.4 % (0.0-1.0); EOSINOPHILS ABSOLUTE AUTO 0.14 K/uL (0.00-0.45); EOSINOPHILS PERCENT AUTO 1.2 % (0.0-6.0); HEMATOCRIT 44.6 % (37.0-47.0); IMMATURE GRAN ABSOLUTE AUTO 0.03 K/uL (0.00-0.05); IMMATURE GRAN PERCENT AUTO 0.3 % (0.0-0.4); LYMPHOCYTES ABSOLUTE AUTO 2.35 K/uL (1.00-4.80); LYMPHOCYTES PERCENT AUTO 20.2 % (24.0-44.0); MEAN CORPUSCULAR HEMOGLOBIN 29.1 pg (28.0-32.0); MEAN CORPUSCULAR HGB CONC 33.6 g/dL (32.0-36.0); MEAN CORPUSCULAR VOLUME 86.4 fL (83.0-99.0); MEAN PLATELET VOLUME 10.1 fL (9.4-12.3); MONOCYTES ABSOLUTE AUTO 0.63 K/uL (0.00-0.80); MONOCYTES PERCENT AUTO 5.4 % (0.0-8.0); NEUTROPHILS ABSOLUTE AUTO 8.43 K/uL (1.80-7.70); NEUTROPHILS PERCENT AUTO 72.5 % (41.0-71.0); PLATELET COUNT,PLT 195 K/uL (150-400); RED BLOOD CELL COUNT 5.16 M/uL (4.10-5.30); WHITE BLOOD CELL COUNT,WBC 11.63 K/uL (3.9-11.3)
[2024-11-06] MEDS: HYDROmorphone 1 MG/ML Syringe IVPUSH ONE (19:50)
[2024-11-06] MEDS: Sodium Chloride 0.9% 1,000 ML IV ONE (19:50)
[2024-11-06] MEDS: Ondansetron 4 MG/2 ML SDV IVPUSH ONE (19:52)
[2024-11-06 20:08] LABS: A/G RATIO 1.1 (0.9-1.6); ALANINE AMINOTRANSFERASE,ALT 17 IU/L (14-63); ALBUMIN 4.2 g/dL (3.4-5.0); ALKALINE PHOSPHATASE 97 U/L (46-116); ASPARTATE AMNIOTRANSFERASE,AST 19 IU/L (15-37); BILIRUBIN TOTAL 0.9 mg/dL (0.2-1.0); BLOOD UREA NITROGEN,BUN 19 mg/dL (7.0-18.0); CALCIUM 9.7 mg/dL (8.5-10.1); CARBON DIOXIDE,CO2 26.8 mmol/L (21.0-32.0); CHLORIDE,CL 106 mmol/L (98-107); CREATININE 1.4 mg/dL (0.6-1.0); GLUCOSE RANDOM 126 mg/dL (74-106); LIPASE 34 U/L (16-77); POTASSIUM,K 3.7 mmol/L (3.5-5.1); SODIUM,NA 143 mmol/L (136-145)
[2024-11-06 20:13] LABS: ESTIMATED GFR 45 mL/min (>60)
[2024-11-06] MEDS: Ketorolac 30 MG/ML SDV IVPUSH ONE (20:25)
[2024-11-06 20:33] LABS: APPEARANCE,URINE CLEAR; BILIRUBIN,URINE NEGATIVE (NEGATIVE); COLOR,URINE YELLOW; GLUCOSE,URINE >=1000 mg/dL (NEGATIVE); KETONES,URINE TRACE mg/dL (NEGATIVE); LEUKOCYTE ESTERASE,URINE NEGATIVE (NEGATIVE); NITRITE,URINE NEGATIVE (NEGATIVE); OCCULT BLOOD,URINE NEGATIVE (NEGATIVE); PROTEIN,URINE NEGATIVE (NEGATIVE); UROBILINOGEN,URINE 0.2 EU/dL (<2.0)
[2024-11-06] MEDS ORDERED: Iopamidol 755 Mg/ML 100 ML Bottle IVPUSH ONE (20:52)
[2024-11-06] MEDS: Dicyclomine 10 MG Cap PO ONE ×2 (21:48→21:49)
[2024-11-06] MEDS: Promethazine 25 MG/ML SDV IM ONE (22:03)
[2024-11-06] MEDS: Magnesium Citrate Solution 296 ML Bottle PO ONE (22:05)
[2024-11-07] MEDS: Iopamidol 755 Mg/ML 100 ML Bottle IVPUSH ONE (05:50)
== END 2024-11-06 22:38 | disposition home or self-care (01) ==
LOC: MW.ED 19:15
DX: R07.9 Chest pain, unspecified (principal); R10.84 Generalized abdominal pain; R10.30 Lower abdominal pain, unspecified; I10 Essential (primary) hypertension; E66.9 Obesity, unspecified; E11.9 Type 2 diabetes mellitus without complications; Z75.3 Unavailability and inaccessibility of health-care facilities; Z88.0 Allergy status to penicillin; Z91.018 Allergy to other foods; Z91.040 Latex allergy status; Z88.8 Allergy status to other drugs, medicaments and biological substances; Z79.899 Other long term (current) drug therapy; Z90.49 Acquired absence of other specified parts of digestive tract; Z90.710 Acquired absence of both cervix and uterus
CPT/HCPCS: 36415; 71045; 71275; 74177; 80053; 81003; 83690; 84484; 85025; 85379; 96361; 96374; 96375; 99285; A9270; J1171; J1885; J2405; J7030; Q9967; 93010; 99284